=== PATIENT | female | born 1960 | race Caucasian/White ===

== ENCOUNTER 2017-07-27 17:39 | Inpatient (IN) | payer BC ==
[~2017-07-27] VITALS: Ht 160 cm; Wt 65.5 kg
[~2017-07-27 17:39] MED LIST: CYAN3INJ; EFF50 PO; FRRS300 PO; SYN125 PO; TRAZ100T29 PO
[2017-07-27] MEDS ORDERED: LORAZEPAM 2 MG/ML 1 ML VIAL IV STA (18:02)
[2017-07-27] MEDS ORDERED: CLONIDINE HCL 0.3 MG/24 HR TRANSDERM SYS TD STA (18:02)
[2017-07-27] MEDS ORDERED: VENL150C56 PO (18:05)
[2017-07-27] MEDS ORDERED: LEVO125T72 PO (18:05)
[2017-07-27] MEDS ORDERED: MULTI-VITAMIN INFUSION INJ 10 ML, THIAMINE HCL INJ 100 MG, FoLIC ACID INJ 1 MG in SODIU... IV ONE (18:15)
--- NOTE | 2017-07-27 18:21 | EMERGENCY ROOM VISIT NOTE ---
History Report prepared by Alberto: Naseem Llamas Under the Supervision of: Dr. Dung Kern M.D. First contact with patient: 17:48 Chief Complaint: DETOX REQUEST Stated Complaint: NEED DETOX, VOLUNTARY COMMITTMENT History of Present Illness The patient is a 57 year old female who presents to the Emergency Room with persistent anxiety beginning a couple of days ago. The patient states that she has had problems with drinking alcohol and using drugs. She reports that she usually drinks a fifth a day. The patient states her last alcoholic beverage was this morning. The patient states she had used drugs such as Percocet, Ketamine, and Valium in the past. She reports that recently she has been huffing gas and air duster. The patient states she does not feel safe since her is not home. She reports she is anxious that she is going to hurt herself. She reports she tried to schedule detox but states she is not able to get in until early next week due to insurance. She reports that she decided to come to the ER today because she feels unsafe and would like to get help. Source of History: patient Onset: a couple of days ago Position: other (global) Quality: other (global) Timing: other (persistent) Review of Systems See HPI for pertinent positives & negatives. A total of 10 systems reviewed and were otherwise negative. Past Medical & Surgical Medical Problems: (1) Anemia (2) Anxiety (3) Depression (4) Graves disease (5) HLD (hyperlipidemia) (6) Hypothyroid (7) Meralgia paresthetica Surgical Problems: (1) H/O abdominoplasty (2) H/O section (3) H/O gastric bypass (4) H/O thyroidectomy (5) Hx of tonsillectomy Family History FH: COPD (chronic obstructive pulmonary disease) FH: asthma Heart disease Social History Smoking Status: Current Every Day Smoker Alcohol Use: heavy Marital Status: Housing Status: lives with significant other Current/Historical Medications Scheduled Levothyroxine Sodium (Synthroid), 125 MCG PO DAILY Trazodone Hcl (Trazodone), 150 MG PO QHS Venlafaxine Hcl (Effexor Extended Rel), 300 MG PO DAILY Allergies Coded Allergies: No Known Allergies (Verified , 07/27/17) Physical Exam Vital Signs Date Time Temp Pulse Resp B/P (MAP) Pulse Ox O2 Delivery O2 Flow Rate FiO2 5/12/18 21:46 83 21 117/67 96 Room Air 07/27/17 19:53 72 20 137/73 98 Room Air 07/27/17 18:55 71 07/27/17 18:43 96 Room Air 07/27/17 18:43 96 Room Air 07/27/17 17:42 36.7 72 20 134/75 100 Room Air Physical Exam GENERAL: Tearful, awake, alert, well-appearing, in no acute distress HENT: Normocephalic, atraumatic. Oropharynx unremarkable. EYES: Normal conjunctiva. Sclera non-icteric. NECK: Supple. No nuchal rigidity. FROM. No JVD. RESPIRATORY: Clear to auscultation. CARDIAC: Regular rate, normal rhythm. Extremities warm and well perfused. Pulses equal. ABDOMEN: Soft, non-distended. No tenderness to palpation. No rebound or guarding. No masses. RECTAL: Deferred. MUSCULOSKELETAL: Chest examination reveals no tenderness. The back is symmetrical on inspection without obvious abnormality. There is no CVA tenderness to palpation. No joint edema. LOWER EXTREMITIES: Calves are equal size bilaterally and non-tender. No edema. No discoloration. NEURO: Normal sensorium. No sensory or motor deficits noted. SKIN: No rash or jaundice noted. Medical Decision & Procedures Laboratory Results 07/27/17 18:25 Red Blood Count 4.64, Mean Corpuscular Volume 78.4, Mean Corpuscular Hemoglobin 25.2, Mean Corpuscular Hemoglobin Concent 32.1, Mean Platelet Volume 9.1, Neutrophils (%) (Auto) 82.1, Lymphocytes (%) (Auto) 9.1, Monocytes (%) (Auto) 8.4, Eosinophils (%) (Auto) 0.0, Basophils (%) (Auto) 0.2, Neutrophils # (Auto) 10.47, Lymphocytes # (Auto) 1.16, Monocytes # (Auto) 1.07, Eosinophils # (Auto) 0.00, Basophils # (Auto) 0.02 07/27/17 18:25 Test 07/27/17 18:25 07/27/17 18:56 White Blood Count 12.75 K/uL (4.8-10.8) Red Blood Count 4.64 M/uL (4.2-5.4) Hemoglobin 11.7 g/dL (12.0-16.0) Hematocrit 36.4 % (37-47) Mean Corpuscular Volume 78.4 fL (80-100) Mean Corpuscular Hemoglobin 25.2 pg (25-34) Mean Corpuscular Hemoglobin Concent 32.1 g/dl (32-36) Platelet Count 391 K/uL (130-400) Mean Platelet Volume 9.1 fL (7.4-10.4) Neutrophils (%) (Auto) 82.1 % Lymphocytes (%) (Auto) 9.1 % Monocytes (%) (Auto) 8.4 % Eosinophils (%) (Auto) 0.0 % Basophils (%) (Auto) 0.2 % Neutrophils # (Auto) 10.47 K/uL (1.4-6.5) Lymphocytes # (Auto) 1.16 K/uL (1.2-3.4) Monocytes # (Auto) 1.07 K/uL (0.11-0.59) Eosinophils # (Auto) 0.00 K/uL (0-0.5) Basophils # (Auto) 0.02 K/uL (0-0.2) RDW Standard Deviation 42.0 fL (36.4-46.3) RDW Coefficient of Variation 14.8 % (11.5-14.5) Immature Granulocyte % (Auto) 0.2 % Immature Granulocyte # (Auto) 0.03 K/uL (0.00-0.02) Prothrombin Time 9.6 SECONDS (9.0-12.0) Prothromb Time International Ratio 0.9 (0.9-1.1) Activated Partial Thromboplast Time 27.5 SECONDS (21.0-31.0) Partial Thromboplastin Ratio 1.1 Urine Color DK YELLOW Urine Appearance CLEAR (CLEAR) Urine pH 5.5 (4.5-7.5) Urine Specific [place] 1.037 (1.000-1.030) Urine Protein TRACE (NEG) Urine Glucose (UA) NEG (NEG) Urine Ketones 1+ (NEG) Urine Occult Blood NEG (NEG) Urine Nitrite NEG (NEG) Urine Bilirubin NEG (NEG) Urine Urobilinogen NEG (NEG) Urine Leukocyte Esterase NEG (NEG) Urine WBC (Auto) 1-5 /hpf (0-5) Urine RBC (Auto) 0-4 /hpf (0-4) Urine Hyaline Casts (Auto) 1-5 /lpf (0-5) Urine Epithelial Cells (Auto) >30 /lpf (0-5) Urine Bacteria (Auto) NEG (NEG) Anion Gap 6.0 mmol/L (3-11) Est Creatinine Clear Calc Drug Dose 57.9 ml/min Estimated GFR () 74.7 Estimated GFR (Non- 64.5 BUN/Creatinine Ratio 24.8 (10-20) Calcium Level 9.3 mg/dl (8.5-10.1) Total Bilirubin 0.4 mg/dl (0.2-1) Direct Bilirubin 0.1 mg/dl (0-0.2) Aspartate Amino Transf (AST/SGOT) 103 U/L (15-37) Alanine Aminotransferase (ALT/SGPT) 22 U/L (12-78) Alkaline Phosphatase 109 U/L (45-117) Total Creatine Kinase 2827 U/L (26-192) Creatine Kinase MB 54.7 ng/ml (0.5-3.6) Creatine Kinase MB Ratio 1.9 (0-3.0) Troponin I < 0.015 ng/ml (0-0.045) Total Protein 7.9 gm/dl (6.4-8.2) Albumin 4.1 gm/dl (3.4-5.0) Lipase 105 U/L (73-393) Salicylates Level 3.2 mg/dl (2.8-20) Urine Opiates Screen NEG (NEG) Urine Methadone, Qualitative NEG (NEG) Acetaminophen Level < 2 ug/ml (10-30) Urine Barbiturates NEG (NEG) Urine Phencyclidine (PCP) Level NEG (NEG) Ur Amphetamine/Methamphetamine NEG (NEG) MDMA (Ecstasy) Screen POS (NEG) Urine Benzodiazepines Screen NEG (NEG) Urine Cocaine Metabolite NEG (NEG) Urine Marijuana (THC) NEG (NEG) Ethyl Alcohol mg/dL < 3.0 mg/dl (0-3) Labs reviewed by ED physician. Medications Administered Medications (Trade) Dose Ordered Sig/Sneha Route Start Time Stop Time Status Last Admin Dose Admin Multivitamins 10 ml/Thiamine HCl 100 mg/Folic Acid 1 mg/Sodium Chloride 1,011.2 ml @ 500 mls/ hr Q2H2M ONCE IV 07/27/17 18:15 07/27/17 20:16 DC 07/27/17 19:30 500 MLS/HR Clonidine HCl (Wjthfczh-Zaf-0 0.3mg/24hr Patch) 1 patch NOW STAT TD 07/27/17 18:02 07/27/17 18:05 DC 07/27/17 19:40 1 PATCH Lorazepam (Ativan Inj) 1 mg NOW STAT IV 07/27/17 18:02 07/27/17 18:05 DC 07/27/17 19:39 1 MG Ondansetron HCl (Zofran Inj) 4 mg NOW STAT IV 07/27/17 19:09 07/27/17 19:10 DC 07/27/17 19:40 4 MG Sodium Chloride 1,000 ml @ 999 mls/hr Q1H1M STAT IV 07/27/17 19:31 07/27/17 20:31 DC 07/27/17 21:45 999 MLS/HR Potassium Chloride (Klor-Con M10) 40 meq STK-MED ONCE .ROUTE 07/27/17 19:35 07/27/17 19:36 DC 07/27/17 19:40 40 MEQ ECG Per My Interpretation Indication: toxicologic Rate (beats per minute): 69 Rhythm: normal sinus Findings: no ectopy, other (No ST elevation or depression) ED Course 1800: Past medical records reviewed. The patient was evaluated in room A07. A complete history and physical examination was performed. 1801: Ordered Ativan Injection 1 mg IV, Clonidine HCl 1 patch TD. 1814: Ordered Multivitamins 10 ml/ Thiamine HCl 100 mg/ Folic Acid 1 mg/ Sodium Chloride 1011.2 ml @ 500 mls/hr IV. 1908: Ordered Zofran Injection 4 mg IV. 1930: Ordered Sodium Chloride 1000 ml @ 999 mls/hr IV. 1934: Ordered Potassium Chloride 40 meq PO. 1943: I reevaluated the patient and updated her on her results. I discussed the treatment plan, which she agrees to. The patient will be further evaluated. 1945: I discussed the patient's case with Dr. Choi, [facility] Hospitalist. He understands the patient's condition and agrees to accept the patient. The patient will be further evaluated. Medical Decision Prior records/ancillary studies reviewed. Triage Nursing notes reviewed. The patient's history was concerning for possible psychiatric disturbance. Differential diagnosis: Etiologies such as mood disorder, infection, hypoglycemia, electrolyte abnormalities, cardiac sources, intracerebral event, toxicologic, neurologic, as well as others were entertained. This is a 57-year-old female who presents the emergency department with a plan to go to detox on Saturday however in the meantime the patient is afraid that she is going to hurt herself. For this reason the patient was treated for withdrawal and placed on a clonidine patch as well as Ativan. She was also given a banana bag. She was found to have an elevation in her CK therefore I did discuss the case with the hospitalist service. She was given a normal saline bolus. Patient was in agreement with the treatment plan. Medication Reconcilliation Current Medication List: was personally reviewed by me Blood Pressure Screening Patient's blood pressure: Elevated blood pressure Referred to Hospitalist Consults Time Called: 1945 Consulting Physician: Kourtney Bearden Hospitalist Returned Call: 1945 I discussed the patient's case with Kourtney Bearden Hospitalist. He understands the patient's condition and agrees to accept the patient. The patient will be further evaluated. Impression Primary Impression: Rhabdomyolysis Additional Impression: Alcohol withdrawal Scribe Attestation The scribe's documentation has been prepared under my direction and personally reviewed by me in its entirety. I confirm that the note above accurately reflects all work, treatment, procedures, and medical decision making performed by me. Departure Information Dispostion Being Evaluated By Hospitalist Referrals No Doctor, Assigned (PCP) Patient Instructions My [facility] Problem Qualifiers Primary Impression: Rhabdomyolysis Rhabdomyolysis type: non-traumatic Qualified Codes: M62.82 - Rhabdomyolysis Additional Impression: Alcohol withdrawal Complication of substance-induced condition: uncomplicated Qualified Codes: F10.230 - Alcohol dependence with withdrawal, uncomplicated
[2017-07-27 18:43] LABS: BASO % 0.2 %; BASO ABS # 0.02 K/uL (0-0.2); HEMATOCRIT 36.4 % (37-47); HEMOGLOBIN 11.7 g/dL (12.0-16.0); IG# 0.03 K/uL (0.00-0.02); LYMPH % 9.1 %; LYMPH ABS # 1.16 K/uL (1.2-3.4); MEAN CELL VOLUME 78.4 fL (80-100); MEAN CORPUSCULAR HEMOGLOBIN 25.2 pg (25-34); MEAN CORPUSCULAR HGB CONC 32.1 g/dl (32-36); MEAN PLATELET VOLUME 9.1 fL (7.4-10.4); MONO % 8.4 %; MONO ABS # 1.07 K/uL (0.11-0.59); NEUT % 82.1 %; NEUT ABS # 10.47 K/uL (1.4-6.5); PLATELET COUNT 391 K/uL (130-400); RED CELL DISTRIBUTION WIDTH CV 14.8 % (11.5-14.5); WHITE BLOOD COUNT 12.75 K/uL (4.8-10.8)
[2017-07-27 18:53] LABS: INR 0.9 (0.9-1.1); PTT PATIENT 27.5 SECONDS (21.0-31.0)
[2017-07-27 19:07] LABS: ALBUMIN 4.1 gm/dl (3.4-5.0); ALT/SGPT 22 U/L (12-78); AST/SGOT 103 U/L (15-37); BLOOD UREA NITROGEN 24 mg/dl (7-18); CALCIUM 9.3 mg/dl (8.5-10.1); CARBON DIOXIDE 28 mmol/L (21-32); CREATININE 0.98 mg/dl (0.60-1.20); GLUCOSE 125 mg/dl (70-99); POTASSIUM 3.3 mmol/L (3.5-5.1); SODIUM 137 mmol/L (136-145)
[2017-07-27] MEDS ORDERED: ONDANSETRON INJ 2 MG/ML 2 ML VIAL IV STA (19:09)
[2017-07-27] MEDS ORDERED: POTASSIUM CHLORIDE 20 MEQ TABCR PO STA (19:09)
[2017-07-27 19:22] LABS: ALKALINE PHOSPHATASE 109 U/L (45-117); CKMB 54.7 ng/ml (0.5-3.6); LIPASE 105 U/L (73-393); TOTAL PROTEIN 7.9 gm/dl (6.4-8.2)
[2017-07-27] MEDS: SODIUM CHLORIDE 0.9% 1000ML 1,000 ML IV STA ×2 (19:31→21:45)
[2017-07-27] MEDS ORDERED: POTASSIUM CHLORIDE 10 MEQ TABCR ONE (19:35)
[2017-07-27] MEDS ORDERED: GABAPENTIN 600 MG TAB PO SCH (22:30)
[2017-07-27] MEDS ORDERED: LORAZEPAM 2 MG/ML 1 ML VIAL IV PRN (22:30)
[2017-07-27] MEDS ORDERED: CYAN10004 IV (22:36)
[2017-07-27] MEDS ORDERED: LEVO112T4 PO (22:36)
[2017-07-27] MEDS ORDERED: NALT50TA5 PO (22:36)
[2017-07-27 23:25] VITALS: BP 123/72; PULSE 75; TEMP 36.9; O2SAT 98; Ht 160 cm; Wt 65.5 kg
[2017-07-28] VITALS (8 sets, daily range): BP systolic 110–123; BP diastolic 60–76; PULSE 57–81; TEMP 36.7–37.1; O2SAT 94–99
[2017-07-28] MEDS ORDERED: GABAPENTIN 1200MG LOADING DOSE PO ONE
[2017-07-28] MEDS ORDERED: SODIUM CHLORIDE 0.9% 1000ML 1,000 ML IV SCH
[2017-07-28] MEDS: LORAZEPAM INJ 1 MG in SYRINGE 0.5 ML IV PRN ×3 (00:14→15:56)
--- NOTE | 2017-07-28 02:42 | History and Physical ---
History & Physical Date & Time of Service: July 28, 2017 at 02:11 Chief Complaint: Alcohol Abuse, Rhabdomyolysis Primary Care Physician: Ren Mcbride M.D.(ANNE-MARIE) History of Present Illness Source: patient, clinic records, hospital records 57 years old female with past medical history of vitamin B12, substance abuse, alcohol abuse, hypothyroidism, depression, anxiety history of gastric bypass came to the ER to get help for detox. Patient said that she has been in rehab several time and relapsed. She said that she wants to get help to get her detox. Patient said her anxiety is getting worse and she is very anxious that she is going to hurt herself. She decides to come to the ER because does not feel safe at home since her is not there and needed to get help. She said that she does not want to . Patient said that she drinks a fifth of liquor daily. Patient said that she has been buying drugs from the street. Denies any cocaine, heroin and marijuana used. Patient said that she has been huffing gas and hair duster that makes her to get high. She denies any suicidal thought, hallucination, or psychosis. Patient said that in the past she went to alcohol withdrawal and DT. She said that her last drink was this morning. she is waiting for placement for inpatient alcohol rehab. Denies any chest pain, palpitation, dizziness, shortness of breath, fever, dysuria. Past Medical/Surgical History Medical Problems: (1) Anemia (2) Anxiety (3) Depression (4) Graves disease (5) HLD (hyperlipidemia) (6) Hypothyroid (7) Meralgia paresthetica Surgical Problems: (1) H/O abdominoplasty (2) H/O section (3) H/O gastric bypass (4) H/O thyroidectomy (5) Hx of tonsillectomy Family History FH: COPD (chronic obstructive pulmonary disease) FH: asthma Heart disease Social History Smoking Status: Current Every Day Smoker Marital Status: Immunizations History of Influenza Vaccine: No History of Tetanus Vaccine?: Unknown History of Pneumococcal: No History of Hepatitis B Vaccine: DATES UNKNOWN Hepatitis Immunization Date: May 17, 1995 Allergies Coded Allergies: Tramadol (Verified Adverse Reaction, Severe, Seizure, 07/28/17) Patient states that she has seizures when she has Tramadol Home Medications Scheduled Cyanocobalamin (Vitamin B-12 1000 Mcg), 1,000 MCG IV MONTHLY Levothyroxine Sodium (Levothyroxine Sodium), 1 TAB PO DAILY Naltrexone Hcl (Naltrexone Hcl), 1 TAB PO DAILY Trazodone Hcl (Trazodone), 150 MG PO QHS Venlafaxine Hcl (Effexor Extended Rel), 300 MG PO DAILY Review of Systems Constitutional: + problem reported (Anxious), No fever, No chills Eyes: No eye pain, No diplopia ENT: No nasal symptoms, No trouble swallowing Respiratory: No cough, No sputum, No shortness of breath, No dyspnea on exertion Cardiovascular: No chest pain, No claudication, No palpitations Abdomen: No pain, No nausea, No vomiting Genitourinary - Female: No dysuria, No urinary frequency Neurologic: No memory loss, No weakness, No vertigo Psychiatric: + depression symptoms, + anxiety, + substance abuse Endocrine: No fatigue Hematologic / Lymphatic: No abnormal bleeding/bruising Integumentary: No rash, No itch Physical Exam Vital Signs Date Time Temp Pulse Resp B/P (MAP) Pulse Ox O2 Delivery O2 Flow Rate FiO2 07/27/17 23:25 36.9 75 24 123/72 98 Room Air 07/27/17 22:56 79 18 107/59 98 Room Air 07/27/17 21:46 83 21 117/67 96 Room Air 07/27/17 19:53 72 20 137/73 98 Room Air 07/27/17 18:55 71 07/27/17 18:43 96 Room Air 07/27/17 18:43 96 Room Air 07/27/17 17:42 36.7 72 20 134/75 100 Room Air General Appearance: WD/WN, no apparent distress Head: normocephalic, atraumatic Eyes: PERRL, EOMI ENT: hearing grossly normal Neck: no JVD, trachea midline Respiratory/Chest: normal breath sounds, no respiratory distress, no accessory muscle use Cardiovascular: regular rate, rhythm, no JVD, no murmur Abdomen/GI: normal bowel sounds, non tender, soft Back: no CVA tenderness Extremities/Musculoskelatal: no calf tenderness Neurologic/Psych: no motor/sensory deficits, alert, normal mood/affect, oriented x 3 Skin: warm/dry, no rash Diagnostics Laboratory Results Results Past 24 Hours Test 07/27/17 18:25 07/27/17 18:56 Range/Units White Blood Count 12.75 4.8-10.8 K/uL Red Blood Count 4.64 4.2-5.4 M/uL Hemoglobin 11.7 12.0-16.0 g/dL Hematocrit 36.4 37-47 % Mean Corpuscular Volume 78.4 80-100 fL Mean Corpuscular Hemoglobin 25.2 25-34 pg Mean Corpuscular Hemoglobin Concent 32.1 32-36 g/dl Platelet Count 391 130-400 K/uL Mean Platelet Volume 9.1 7.4-10.4 fL Neutrophils (%) (Auto) 82.1 % Lymphocytes (%) (Auto) 9.1 % Monocytes (%) (Auto) 8.4 % Eosinophils (%) (Auto) 0.0 % Basophils (%) (Auto) 0.2 % Neutrophils # (Auto) 10.47 1.4-6.5 K/uL Lymphocytes # (Auto) 1.16 1.2-3.4 K/uL Monocytes # (Auto) 1.07 0.11-0.59 K/uL Eosinophils # (Auto) 0.00 0-0.5 K/uL Basophils # (Auto) 0.02 0-0.2 K/uL RDW Standard Deviation 42.0 36.4-46.3 fL RDW Coefficient of Variation 14.8 11.5-14.5 % Immature Granulocyte % (Auto) 0.2 % Immature Granulocyte # (Auto) 0.03 0.00-0.02 K/uL Prothrombin Time 9.6 9.0-12.0 SECONDS Prothromb Time International Ratio 0.9 0.9-1.1 Activated Partial Thromboplast Time 27.5 21.0-31.0 SECONDS Partial Thromboplastin Ratio 1.1 Urine Color DK YELLOW Urine Appearance CLEAR CLEAR Urine pH 5.5 4.5-7.5 Urine Specific [place] 1.037 1.000-1.030 Urine Protein TRACE NEG Urine Glucose (UA) NEG NEG Urine Ketones 1+ NEG Urine Occult Blood NEG NEG Urine Nitrite NEG NEG Urine Bilirubin NEG NEG Urine Urobilinogen NEG NEG Urine Leukocyte Esterase NEG NEG Urine WBC (Auto) 1-5 0-5 /hpf Urine RBC (Auto) 0-4 0-4 /hpf Urine Hyaline Casts (Auto) 1-5 0-5 /lpf Urine Epithelial Cells (Auto) >30 0-5 /lpf Urine Bacteria (Auto) NEG NEG Sodium Level 137 136-145 mmol/L Potassium Level 3.3 3.5-5.1 mmol/L Chloride Level 103 98-107 mmol/L Carbon Dioxide Level 28 21-32 mmol/L Anion Gap 6.0 3-11 mmol/L Blood Urea Nitrogen 24 7-18 mg/dl Creatinine 0.98 0.60-1.20 mg/dl Est Creatinine Clear Calc Drug Dose 57.9 ml/min Estimated GFR () 74.7 Estimated GFR (Non- 64.5 BUN/Creatinine Ratio 24.8 10-20 Random Glucose 125 70-99 mg/dl Calcium Level 9.3 8.5-10.1 mg/dl Total Bilirubin 0.4 0.2-1 mg/dl Direct Bilirubin 0.1 0-0.2 mg/dl Aspartate Amino Transf (AST/SGOT) 103 15-37 U/L Alanine Aminotransferase (ALT/SGPT) 22 12-78 U/L Alkaline Phosphatase 109 45-117 U/L Total Creatine Kinase 2827 26-192 U/L Creatine Kinase MB 54.7 0.5-3.6 ng/ml Creatine Kinase MB Ratio 1.9 0-3.0 Troponin I < 0.015 0-0.045 ng/ml Total Protein 7.9 6.4-8.2 gm/dl Albumin 4.1 3.4-5.0 gm/dl Lipase 105 73-393 U/L Salicylates Level 3.2 2.8-20 mg/dl Urine Opiates Screen NEG NEG Urine Methadone, Qualitative NEG NEG Acetaminophen Level < 2 10-30 ug/ml Urine Barbiturates NEG NEG Urine Phencyclidine (PCP) Level NEG NEG Ur Amphetamine/Methamphetamine NEG NEG MDMA (Ecstasy) Screen POS NEG Urine Benzodiazepines Screen NEG NEG Urine Cocaine Metabolite NEG NEG Urine Marijuana (THC) NEG NEG Ethyl Alcohol mg/dL < 3.0 0-3 mg/dl Impression Assessment and Plan Alcohol abuse History of DT and alcohol withdrawal We will start on gabapentin and Ativan for alcohol withdrawal protocol One-to-one observation Continue thiamine and folic acid daily Continue IV fluid Counseling on alcohol cessation On naltrexone Will need inpatient alcohol rehab Substance abuse Purchase illegal substances from the street Depression Anxiety Denies any suicidal thoughts Continue Effexor Psych consult Mild rhabdo CK on admission above 2827 Continue IV fluid Check CK level in a.m. Hypokalemia K replaced Monitor BMP Hypothyroidism continue levothyroxine Check TSH in a.m. B12 deficiency Check B12 level Continue monthly B12 injection DVT prophylaxis On Lovenox subcu CODE STATUS full code Advanced Directives Existing Living Will: No Existing Power of Dry Cell Assembly Supervisor: No Resuscitation Status VTE Prophylaxis Will order VTE Prophylaxis: Yes
[2017-07-28] MEDS: LEVOTHYROXINE 112 MCG TAB PO SCH (05:50)
[2017-07-28] MEDS: GABAPENTIN 600MG Q6H DOSE PO SCH ×2 (05:50→11:38)
[2017-07-28 06:15] LABS: HEMATOCRIT 28.8 % (37-47); HEMOGLOBIN 8.9 g/dL (12.0-16.0); MEAN CELL VOLUME 79.8 fL (80-100); MEAN CORPUSCULAR HEMOGLOBIN 24.7 pg (25-34); MEAN CORPUSCULAR HGB CONC 30.9 g/dl (32-36); MEAN PLATELET VOLUME 8.5 fL (7.4-10.4); PLATELET COUNT 266 K/uL (130-400); RED CELL DISTRIBUTION WIDTH CV 15.1 % (11.5-14.5); RED CELL DISTRIBUTION WIDTH SD 43.5 fL (36.4-46.3); WHITE BLOOD COUNT 7.23 K/uL (4.8-10.8)
[2017-07-28 06:57] LABS: CALCIUM 7.8 mg/dl (8.5-10.1); CREATININE 0.57 mg/dl (0.60-1.20); POTASSIUM 3.9 mmol/L (3.5-5.1)
[2017-07-28] MEDS: THIAMINE HCL 100 MG TAB PO SCH (08:20)
[2017-07-28] MEDS: VENLAFAXINE HCL XR 150 MG CAPXR PO SCH (08:20)
[2017-07-28] MEDS: ENOXAPARIN 40 MG/0.4 ML SYR SQ SCH (08:20)
--- NOTE | 2017-07-28 11:39 | Psychiatric Consultation ---
Psychiatric Consultation Date of Service: July 28, 2017. Consult placed to evaluate depression in a 57 yo woman who is admitted medically for alcohol withdrawal. Liaison attempted to see X 2 without success due to DT's and somnolence. We will attempt to see the patient again tomorrow when she is more alert.
--- NOTE | 2017-07-28 20:10 | Progress Note ---
Medicine Progress Note Date & Time of Visit: July 28, 2017 at 19:00 . Subjective Recheck for alcohol withdrawal. Last drink about 24 hours ago. Experiencing tremors, anxiety, nausea. No emesis. No hallucinations. Seen by Psychiatry for depression. . Objective Last 8 Hrs Date Time Temp Pulse Resp B/P (MAP) Pulse Ox O2 Delivery O2 Flow Rate FiO2 07/28/17 17:35 36.9 81 16 111/60 (77) 98 Room Air 07/28/17 16:00 94 Room Air 07/28/17 15:16 37.0 64 18 123/76 (92) 94 Room Air Physical Exam: General- lying in bed; no distress Lungs- clear to auscultation; no respiratory distress Cardiovascular- RRR; no murmur or gallop appreciated; no JVD; no pretibial edema Abdomen- + bowel sounds, soft, nontender Extremities- no cyanosis; no calf tenderness Neuro- alert, oriented; resting tremor; no hallucinations Skin- warm & dry . Laboratory Results: Last 24 Hours Test 07/28/17 05:54 White Blood Count 7.23 K/uL Red Blood Count 3.61 M/uL Hemoglobin 8.9 g/dL Hematocrit 28.8 % Mean Corpuscular Volume 79.8 fL Mean Corpuscular Hemoglobin 24.7 pg Mean Corpuscular Hemoglobin Concent 30.9 g/dl RDW Standard Deviation 43.5 fL RDW Coefficient of Variation 15.1 % Platelet Count 266 K/uL Mean Platelet Volume 8.5 fL Sodium Level 144 mmol/L Potassium Level 3.9 mmol/L Chloride Level 113 mmol/L Carbon Dioxide Level 27 mmol/L Anion Gap 5.0 mmol/L Blood Urea Nitrogen 15 mg/dl Creatinine 0.57 mg/dl Est Creatinine Clear Calc Drug Dose 100.3 ml/min Estimated GFR () 120.1 Estimated GFR (Non- 103.6 BUN/Creatinine Ratio 27.2 Random Glucose 95 mg/dl Calcium Level 7.8 mg/dl Total Creatine Kinase 1478 U/L Vitamin B12 Level 202 pg/mL Folate 14.53 ng/mL Thyroid Stimulating Hormone (TSH) 0.293 uIu/ml Assessment & Plan ALCOHOL WITHDRAWAL Continue alcohol withdrawal protocol with gabapentin, lorazepam, thiamine, MVI. ALCOHOLISM Patient anticipates admission to D&A facility. RHABDOMYOLYSIS CPK at time of admission 2827. Continue IV fluids. Follow. VTE PROPHYLAXIS SQ enoxaparin. Ambulate. DISPOSITION Anticipated admission to D&A facility. Family Medicine follow-up with Dr. Mcbride. . Current Inpatient Medications: Current Inpatient Medications Medications (Trade) Dose Ordered Sig/Sneha Route Start Time Stop Time Status Last Admin Dose Admin Thiamine HCl (Vitamin B-1 Tab) 100 mg QAM PO 07/28/17 09:00 08/27/17 08:59 07/28/17 08:20 100 MG Folic Acid (Folvite Tab) 1 mg QAM PO 07/28/17 09:00 08/27/17 08:59 07/28/17 08:19 1 MG Lorazepam (Ativan Inj) 1 mg ONE PRN IV 07/27/17 22:30 Gabapentin (Neurontin Tab) 600 mg Q8H PO 07/28/17 22:00 07/29/17 14:01 Gabapentin (Neurontin Tab) 600 mg Q12H PO 07/30/17 06:00 07/30/17 18:01 Gabapentin (Neurontin Tab) 600 mg Q24H PO 07/31/17 18:00 07/31/17 18:01 Lorazepam 1 mg/ Syringe 1 ml @ 1 mls/min UD PRN IV 07/28/17 00:15 08/27/17 00:14 07/28/17 15:56 1 MLS/MIN Enoxaparin Sodium (Lovenox Inj) 40 mg QAM SQ 07/28/17 09:00 08/27/17 08:59 07/28/17 08:20 40 MG Levothyroxine Sodium (Synthroid Tab) 112 mcg DAILYBB PO 07/28/17 06:30 08/27/17 06:29 07/28/17 05:50 112 MCG Trazodone HCl (Desyrel Tab) 150 mg HS PO 07/28/17 21:00 08/27/17 20:59 Venlafaxine HCl (effeXOR EXTENDED REL CAP) 300 mg DAILY PO 07/28/17 09:00 08/27/17 08:59 07/28/17 08:20 300 MG Miscellaneous Information (Order Awaiting Action) 1 ea QS N/A 07/28/17 08:00 08/27/17 07:59
[2017-07-28] MEDS ORDERED: PANTOprazole INJ 40 MG in SYRINGE 0 ML IV ONE (20:30)
[2017-07-28] MEDS: TRAZODONE HCL 50 MG TAB PO SCH (21:31)
[2017-07-28] MEDS: GABAPENTIN 600MG Q8H DOSE PO SCH (21:32)
[2017-07-28] MEDS ORDERED: KETOROLAC TROMETHAMINE 15 MG/ML VIAL IV. ONE (22:00)
[2017-07-29] VITALS (7 sets, daily range): BP systolic 109–127; BP diastolic 63–77; PULSE 59–67; TEMP 36.5–37; O2SAT 94–97
[2017-07-29] MEDS: LEVOTHYROXINE 112 MCG TAB PO SCH (06:11)
[2017-07-29] MEDS: GABAPENTIN 600MG Q8H DOSE PO SCH ×2 (06:11→13:37)
[2017-07-29 06:35] LABS: HEMATOCRIT 29.9 % (37-47); HEMOGLOBIN 9.3 g/dL (12.0-16.0); MEAN CELL VOLUME 80.4 fL (80-100); MEAN CORPUSCULAR HGB CONC 31.1 g/dl (32-36); MEAN PLATELET VOLUME 8.6 fL (7.4-10.4); PLATELET COUNT 250 K/uL (130-400); RED CELL DISTRIBUTION WIDTH CV 15.2 % (11.5-14.5); RED CELL DISTRIBUTION WIDTH SD 44.6 fL (36.4-46.3); WHITE BLOOD COUNT 5.43 K/uL (4.8-10.8)
[2017-07-29 07:03] LABS: ALBUMIN 2.7 gm/dl (3.4-5.0); CALCIUM 8.1 mg/dl (8.5-10.1); CREATININE 0.62 mg/dl (0.60-1.20); POTASSIUM 3.7 mmol/L (3.5-5.1)
[2017-07-29 07:04] LABS: PHOSPHORUS 2.3 mg/dl (2.5-4.9); TOTAL PROTEIN 5.4 gm/dl (6.4-8.2)
[2017-07-29] MEDS: THIAMINE HCL 100 MG TAB PO SCH (08:28)
[2017-07-29] MEDS: VENLAFAXINE HCL XR 150 MG CAPXR PO SCH (08:29)
[2017-07-29] MEDS: PANTOprazole SOD 40 MG TAB PO SCH (08:29)
[2017-07-29] MEDS: ENOXAPARIN 40 MG/0.4 ML SYR SQ SCH (08:31)
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
[2017-07-29] MEDS ORDERED: LORAZEPAM 1 MG TAB PO PRN ×2 (12:30)
[2017-07-29] MEDS: IBUPROFEN 200 MG TAB PO PRN ×2 (13:39→20:21)
[2017-07-29] MEDS ORDERED: hydrOXYzine HCL 25 MG TAB PO PRN (14:00)
[2017-07-29] MEDS ORDERED: NICOTINE 14 MG/24 HR TDSY TD ONE (19:15)
--- NOTE | 2017-07-29 21:18 | Progress Note ---
Medicine Progress Note Date & Time of Visit: July 29, 2017 at 12:20 . Subjective Recheck for alcohol withdrawal. Last drink about 48 hours ago. Tremors improved. Nausea better, but appetite only fair. No emesis. No hallucinations. Anxious. . Objective Last 8 Hrs Date Time Temp Pulse Resp B/P (MAP) Pulse Ox O2 Delivery O2 Flow Rate FiO2 07/29/17 16:00 94 Room Air 07/29/17 15:32 36.5 67 16 116/75 (89) 97 Room Air Physical Exam: General- lying in bed; no distress Lungs- clear to auscultation; no respiratory distress Cardiovascular- RRR; no murmur or gallop appreciated; no JVD; no pretibial edema Abdomen- + bowel sounds, soft, nontender Extremities- no cyanosis; no calf tenderness Neuro- alert, oriented; mild resting tremor; no hallucinations Skin- warm & dry . Laboratory Results: Last 24 Hours Test 07/29/17 06:25 White Blood Count 5.43 K/uL Red Blood Count 3.72 M/uL Hemoglobin 9.3 g/dL Hematocrit 29.9 % Mean Corpuscular Volume 80.4 fL Mean Corpuscular Hemoglobin 25.0 pg Mean Corpuscular Hemoglobin Concent 31.1 g/dl RDW Standard Deviation 44.6 fL RDW Coefficient of Variation 15.2 % Platelet Count 250 K/uL Mean Platelet Volume 8.6 fL Sodium Level 143 mmol/L Potassium Level 3.7 mmol/L Chloride Level 110 mmol/L Carbon Dioxide Level 30 mmol/L Anion Gap 4.0 mmol/L Blood Urea Nitrogen 8 mg/dl Creatinine 0.62 mg/dl Est Creatinine Clear Calc Drug Dose 92.2 ml/min Estimated GFR () 116.8 Estimated GFR (Non- 100.8 BUN/Creatinine Ratio 12.8 Random Glucose 97 mg/dl Calcium Level 8.1 mg/dl Phosphorus Level 2.3 mg/dl Magnesium Level 1.8 mg/dl Total Bilirubin 0.3 mg/dl Direct Bilirubin 0.1 mg/dl Aspartate Amino Transf (AST/SGOT) 57 U/L Alanine Aminotransferase (ALT/SGPT) 17 U/L Alkaline Phosphatase 73 U/L Total Creatine Kinase 766 U/L Total Protein 5.4 gm/dl Albumin 2.7 gm/dl Assessment & Plan ALCOHOL WITHDRAWAL Last drink 2 days ago. Moderate withdrawal symptoms. Continue alcohol withdrawal protocol with gabapentin, lorazepam, thiamine, MVI. ALCOHOLISM Patient anticipates admission to D&A facility once withdrawal protocol completed. RHABDOMYOLYSIS CPK at time of admission 2827. Received IV fluids. CPK this morning 766. Follow. ANEMIA Hgb 11.7 --> 9.3. Anemia may be multifactorial. S/P gastric bypass, on B12 injections. B12 202. Folate 14.53. Check Fe studies. B12 IM injection during hospital stay. HYPOTHYROIDISM TSH = 0.293. Decrease levothyroxine to 100 mcg daily. Follow and adjust dose. DEPRESSION Psychiatry consulted. TOBACCO USE Nicotine patch ordered. VTE PROPHYLAXIS SQ enoxaparin. Ambulate. DISPOSITION Anticipated admission to D&A facility once alcohol withdrawal protocol completed (07/31). Family Medicine follow-up with Dr. Mcbride. . Current Inpatient Medications: Current Inpatient Medications Medications (Trade) Dose Ordered Sig/Sneha Route Start Time Stop Time Status Last Admin Dose Admin Thiamine HCl (Vitamin B-1 Tab) 100 mg QAM PO 07/28/17 09:00 08/27/17 08:59 07/29/17 08:28 100 MG Folic Acid (Folvite Tab) 1 mg QAM PO 07/28/17 09:00 08/27/17 08:59 07/29/17 08:29 1 MG Lorazepam (Ativan Inj) 1 mg ONE PRN IV 07/27/17 22:30 Gabapentin (Neurontin Tab) 600 mg Q12H PO 07/30/17 06:00 07/30/17 18:01 Gabapentin (Neurontin Tab) 600 mg Q24H PO 07/31/17 18:00 07/31/17 18:01 Lorazepam 1 mg/ Syringe 1 ml @ 1 mls/min UD PRN IV 07/28/17 00:15 08/27/17 00:14 07/28/17 15:56 1 MLS/MIN Enoxaparin Sodium (Lovenox Inj) 40 mg QAM SQ 07/28/17 09:00 08/27/17 08:59 07/29/17 08:31 40 MG Levothyroxine Sodium (Synthroid Tab) 112 mcg DAILYBB PO 07/28/17 06:30 08/27/17 06:29 07/29/17 06:11 112 MCG Trazodone HCl (Desyrel Tab) 150 mg HS PO 07/28/17 21:00 08/27/17 20:59 07/28/17 21:31 150 MG Venlafaxine HCl (effeXOR EXTENDED REL CAP) 300 mg DAILY PO 07/28/17 09:00 08/27/17 08:59 07/29/17 08:29 300 MG Miscellaneous Information (Order Awaiting Action) 1 ea QS N/A 07/28/17 08:00 08/27/17 07:59 Pantoprazole Sodium (Protonix Tab) 40 mg QAM PO 07/29/17 09:00 08/28/17 08:59 07/29/17 08:29 40 MG Lorazepam (Ativan Tab) PRN Dosing -Active Protocol UD PRN PO 07/29/17 12:30 08/28/17 12:29 Ibuprofen (Advil Tab) 400 mg Q6H PRN PO 07/29/17 12:30 08/28/17 12:29 07/29/17 20:21 400 MG Hydroxyzine HCl (Vistaril Tab) 25 mg Q4H PRN PO 07/29/17 14:00 08/28/17 13:59 Nicotine (Nicoderm Cq 14MG Patch) 1 patch QAM TD 07/30/17 09:00 08/29/17 08:59 Miscellaneous (Remove Nicoderm Patch) 1 ea HS N/A 07/29/17 21:00 08/28/17 20:59
[2017-07-29] MEDS: TRAZODONE HCL 50 MG TAB PO SCH (21:58)
[2017-07-30] MEDS ORDERED: GABAPENTIN 600MG Q12H DOSE PO SCH (06:00)
[2017-07-30] MEDS: IBUPROFEN 200 MG TAB PO PRN (06:11)
[2017-07-30] MEDS ORDERED: LEVOTHYROXINE 100 MCG TAB PO SCH (06:30)
[2017-07-30 06:52] VITALS: BP 120/83; PULSE 56; TEMP 36.7; O2SAT 97
[2017-07-30 07:34] LABS: HEMATOCRIT 31.3 % (37-47); HEMOGLOBIN 9.6 g/dL (12.0-16.0); MEAN CELL VOLUME 80.9 fL (80-100); MEAN CORPUSCULAR HEMOGLOBIN 24.8 pg (25-34); MEAN CORPUSCULAR HGB CONC 30.7 g/dl (32-36); MEAN PLATELET VOLUME 9.2 fL (7.4-10.4); PLATELET COUNT 290 K/uL (130-400); RED CELL DISTRIBUTION WIDTH CV 15.4 % (11.5-14.5); RED CELL DISTRIBUTION WIDTH SD 44.8 fL (36.4-46.3); WHITE BLOOD COUNT 4.43 K/uL (4.8-10.8)
[2017-07-30] MEDS: VENLAFAXINE HCL XR 150 MG CAPXR PO SCH (07:59)
[2017-07-30] MEDS: THIAMINE HCL 100 MG TAB PO SCH (08:00)
[2017-07-30] MEDS: PANTOprazole SOD 40 MG TAB PO SCH (08:00)
[2017-07-30 08:01] LABS: ALBUMIN 2.8 gm/dl (3.4-5.0); CREATININE 0.6 mg/dl (0.60-1.20); POTASSIUM 3.8 mmol/L (3.5-5.1)
[2017-07-30] MEDS: ENOXAPARIN 40 MG/0.4 ML SYR SQ SCH (08:02)
[2017-07-30 08:08] LABS: TOTAL PROTEIN 5.7 gm/dl (6.4-8.2)
[2017-07-30 08:52] VITALS: O2SAT 97
[2017-07-30] MEDS ORDERED: CYANOCOBALAMIN 1000 MCG/ML VIAL IM ONE (09:00)
[2017-07-30] MEDS ORDERED: NICOTINE 14 MG/24 HR TDSY TD SCH (09:00)
[2017-07-30] MEDS ORDERED: CYANOCOBALAMIN 1000 MCG/ML VIAL IM SCH (09:00)
--- NOTE | 2017-07-30 09:23 | Progress Note ---
Medicine Progress Note Date & Time of Visit: July 30, 2017 at 09:16. Subjective Recheck for alcohol withdrawal. Last drink 3 days ago. Tremors improved. Nausea and anorexia better. No emesis. No hallucinations. Less anxious. . Objective Last 8 Hrs Date Time Temp Pulse Resp B/P (MAP) Pulse Ox O2 Delivery O2 Flow Rate FiO2 07/30/17 08:52 97 Room Air 07/30/17 06:52 36.7 56 17 120/83 (95) 97 Room Air Physical Exam: General- lying in bed; no distress Lungs- clear to auscultation; no respiratory distress Cardiovascular- RRR; no murmur or gallop appreciated; no JVD; no pretibial edema Abdomen- + bowel sounds, soft, nontender Extremities- no cyanosis; no calf tenderness Neuro- alert, oriented; no tremor; no hallucinations Skin- warm & dry . Laboratory Results: Last 24 Hours Test 07/30/17 06:51 White Blood Count 4.43 K/uL Red Blood Count 3.87 M/uL Hemoglobin 9.6 g/dL Hematocrit 31.3 % Mean Corpuscular Volume 80.9 fL Mean Corpuscular Hemoglobin 24.8 pg Mean Corpuscular Hemoglobin Concent 30.7 g/dl RDW Standard Deviation 44.8 fL RDW Coefficient of Variation 15.4 % Platelet Count 290 K/uL Mean Platelet Volume 9.2 fL Sodium Level 143 mmol/L Potassium Level 3.8 mmol/L Chloride Level 109 mmol/L Carbon Dioxide Level 30 mmol/L Anion Gap 4.0 mmol/L Blood Urea Nitrogen 10 mg/dl Creatinine 0.60 mg/dl Est Creatinine Clear Calc Drug Dose 95.2 ml/min Estimated GFR () 118.1 Estimated GFR (Non- 101.9 BUN/Creatinine Ratio 15.7 Random Glucose 91 mg/dl Calcium Level 8.0 mg/dl Iron Level 17 mcg/dl Total Iron Binding Capacity 333 mcg/dl Transferrin 249 mg/dl Transferrin % Saturation 0 % Ferritin 9.7 ng/ml Total Bilirubin 0.2 mg/dl Aspartate Amino Transf (AST/SGOT) 44 U/L Alanine Aminotransferase (ALT/SGPT) 17 U/L Alkaline Phosphatase 70 U/L Total Creatine Kinase 459 U/L Total Protein 5.7 gm/dl Albumin 2.8 gm/dl Globulin 2.9 gm/dl Albumin/Globulin Ratio 1.0 Assessment & Plan ALCOHOL WITHDRAWAL Last drink 3 days ago. Moderate withdrawal symptoms. Doing well on alcohol withdrawal protocol with gabapentin, lorazepam, thiamine, MVI. Needs 2 more doses of gabapentin 600 mg- this evening and tomorrow morning. ALCOHOLISM Arrangements being made for transfer to D&A facility. RHABDOMYOLYSIS CPK at time of admission 2827. Received IV fluids. CPK this morning 459. Maintain hydration. ANEMIA Hgb 11.7 --> 9.3 --> 9.6. Anemia probably multifactorial. S/P gastric bypass, on B12 injections. B12 202. Folate 14.53. Fe 17, TIBC 333, ferritin 9.7. Received B12 1000 mcg IM 07/30. May benefit from parenteral Fe once she is discharged to home. HYPOTHYROIDISM TSH = 0.293. Decreased levothyroxine to 100 mcg daily. Follow and adjust dose. DEPRESSION Psychiatry consulted. Continue trazodone and venlafaxine. TOBACCO USE Nicotine patch. VTE PROPHYLAXIS Received SQ enoxaparin. Ambulating. DISPOSITION Arrangements being made for transfer to [facility] for rehab. Family Medicine follow-up with Dr. Mcbride. . Current Inpatient Medications: Current Inpatient Medications Medications (Trade) Dose Ordered Sig/Sneha Route Start Time Stop Time Status Last Admin Dose Admin Thiamine HCl (Vitamin B-1 Tab) 100 mg QAM PO 07/28/17 09:00 08/27/17 08:59 07/30/17 08:00 100 MG Folic Acid (Folvite Tab) 1 mg QAM PO 07/28/17 09:00 08/27/17 08:59 07/30/17 08:01 1 MG Lorazepam (Ativan Inj) 1 mg ONE PRN IV 07/27/17 22:30 Gabapentin (Neurontin Tab) 600 mg Q12H PO 07/30/17 06:00 07/30/17 18:01 07/30/17 05:41 600 MG Lorazepam 1 mg/ Syringe 1 ml @ 1 mls/min UD PRN IV 07/28/17 00:15 08/27/17 00:14 07/28/17 15:56 1 MLS/MIN Enoxaparin Sodium (Lovenox Inj) 40 mg QAM SQ 07/28/17 09:00 08/27/17 08:59 07/30/17 08:02 40 MG Trazodone HCl (Desyrel Tab) 150 mg HS PO 07/28/17 21:00 08/27/17 20:59 07/29/17 21:58 150 MG Venlafaxine HCl (effeXOR EXTENDED REL CAP) 300 mg DAILY PO 07/28/17 09:00 08/27/17 08:59 07/30/17 07:59 300 MG Miscellaneous Information (Order Awaiting Action) 1 ea QS N/A 07/28/17 08:00 08/27/17 07:59 Pantoprazole Sodium (Protonix Tab) 40 mg QAM PO 07/29/17 09:00 08/28/17 08:59 07/30/17 08:00 40 MG Lorazepam (Ativan Tab) PRN Dosing -Active Protocol UD PRN PO 07/29/17 12:30 08/28/17 12:29 Ibuprofen (Advil Tab) 400 mg Q6H PRN PO 07/29/17 12:30 08/28/17 12:29 07/30/17 06:11 400 MG Hydroxyzine HCl (Vistaril Tab) 25 mg Q4H PRN PO 07/29/17 14:00 08/28/17 13:59 Nicotine (Nicoderm Cq 14MG Patch) 1 patch QAM TD 07/30/17 09:00 08/29/17 08:59 07/30/17 08:01 1 PATCH Miscellaneous (Remove Nicoderm Patch) 1 ea HS N/A 07/29/17 21:00 08/28/17 20:59 07/29/17 21:00 1 EA Gabapentin (Neurontin Tab) 600 mg Q24H PO 07/31/17 09:00 07/31/17 09:01 Levothyroxine Sodium (Synthroid Tab) 100 mcg DAILYBB PO 07/30/17 06:30 08/29/17 06:29 07/30/17 06:10 100 MCG
[2017-07-30] MEDS ORDERED: LEVO100T7 PO (09:28)
[2017-07-30] MEDS ORDERED: NICO14DI5 TD (09:28)
[2017-07-30] MEDS ORDERED: NRN600 PO (09:28)
--- NOTE | 2017-07-30 09:31 | Discharge Instructions ---
Discharge Instructions Date of Service July 30, 2017. Admission Reason for Admission: alcohol withdrawal . Discharge Discharge Diagnosis / Problem: alcohol withdrawal Discharge Goals Goal(s): Improve function, Increase independence Activity Recommendations Activity Level: Up Ad Lalitha . Additional Information Patient informed of condition: Yes Advance Directives: No DNR: No Level of Care: Other Communicable Disease: No Prognosis: Improving Blanchard Catheter: No Instructions / Follow-Up Instructions / Follow-Up Thank you for receiving this patient in transfer. Please call if you have any questions. Ja Moody . Current Hospital Diet Patient's current hospital diet: Regular Diet Discharge Diet Recommended Diet: Regular Diet Pending Studies Studies pending at discharge: no Medical Emergencies . Who to Call and When: Medical Emergencies: If at any time you feel your situation is an emergency, please call 911 immediately. . Non-Emergent Contact Non-Emergency issues call your: Primary Care Provider, Hospital Doctor . . "Provider Documentation" section prepared by Ja Moody. . Core Measure Problem Core Measures: None
--- NOTE | 2017-07-30 09:36 | Discharge Summary ---
Discharge Summary Date of Service July 30, 2017. Discharge Summary Admission Date: July 27, 2017 at 22:24 Discharge Date: July 30, 2017 Principal Diagnosis: alcohol withdrawal OTHER ACUTE / SECONDARY DIAGNOSES: dehydration rhabdomyolysis . Secondary Diagnoses/Problems: Chronic and Resolved Medical Problems: Anemia Hypothyroidism Surgical Problems: H/O abdominoplasty H/O section H/O gastric bypass H/O thyroidectomy Hx of tonsillectomy . Consultations: Psychiatry . Medication Reconciliation New Medications: Levothyroxine Sodium (Levothyroxine Sodium) 100 Mcg Tab 100 MCG PO DAILY, #30 TAB 5 Refills New dose. Prescription sent to patient's pharmacy. Gabapentin (Gabapentin) 600 Mg Tab 600 MG PO BID, #2 TAB Last dose 07/31. Nicotine (Nicoderm Cq 14MG Patch) 14 Mg/24 Hr Dis 1 PATCH TD QAM for 30 Days Remove each evening. Continued Medications: Cyanocobalamin (Vitamin B-12 1000 Mcg) 1,000 Mcg Tab 1000 MCG IV MONTHLY, % Trazodone Hcl (Trazodone) 100 Mg Tab 150 MG PO QHS, 0 Refills Venlafaxine Hcl (Effexor Extended Rel) 150 Mg Cap 300 MG PO DAILY Discontinued Medications: Levothyroxine Sodium (Levothyroxine Sodium) 112 Mcg Tab 1 TAB PO DAILY, TAB 5 Refills Naltrexone Hcl (Naltrexone Hcl) 50 Mg Tab 1 TAB PO DAILY for 30 Days, #30 TAB 2 Refills Admission Information HPI (per Admitting provider): 57 years old female with past medical history of vitamin B12, substance abuse, alcohol abuse, hypothyroidism, depression, anxiety history of gastric bypass came to the ER to get help for detox. Patient said that she has been in rehab several time and relapsed. She said that she wants to get help to get her detox. Patient said her anxiety is getting worse and she is very anxious that she is going to hurt herself. She decides to come to the ER because does not feel safe at home since her is not there and needed to get help. She said that she does not want to . Patient said that she drinks a fifth of liquor daily. Patient said that she has been buying drugs from the street. Denies any cocaine, heroin and marijuana used. Patient said that she has been huffing gas and hair duster that makes her to get high. She denies any suicidal thought, hallucination, or psychosis. Patient said that in the past she went to alcohol withdrawal and DT. She said that her last drink was this morning. she is waiting for placement for inpatient alcohol rehab. Denies any chest pain, palpitation, dizziness, shortness of breath, fever, dysuria. . Physical Exam (per Admitting): General Appearance: WD/WN, no apparent distress Head: normocephalic, atraumatic Eyes: PERRL, EOMI ENT: hearing grossly normal Neck: no JVD, trachea midline Respiratory/Chest: normal breath sounds, no respiratory distress, no accessory muscle use Cardiovascular: regular rate, rhythm, no JVD, no murmur Abdomen/GI: normal bowel sounds, non tender, soft Back: no CVA tenderness Extremities/Musculoskelatal: no calf tenderness Neurologic/Psych: no motor/sensory deficits, alert, normal mood/affect, oriented x 3 Skin: warm/dry, no rash Hospital Course ALCOHOL WITHDRAWAL Last drink 3 days ago. Moderate withdrawal symptoms. Doing well on alcohol withdrawal protocol with gabapentin, lorazepam, thiamine, MVI. Needs 2 more doses of gabapentin 600 mg- this evening and tomorrow morning. ALCOHOLISM Arrangements being made for transfer to D&A facility. RHABDOMYOLYSIS CPK at time of admission 2827. Received IV fluids. CPK this morning 459. Maintain hydration. ANEMIA Hgb 11.7 --> 9.3 --> 9.6. Anemia probably multifactorial. S/P gastric bypass, on B12 injections. B12 202. Folate 14.53. Fe 17, TIBC 333, ferritin 9.7. Received B12 1000 mcg IM 07/30. May benefit from parenteral Fe once she is discharged to home. HYPOTHYROIDISM TSH = 0.293. Decreased levothyroxine to 100 mcg daily. Follow and adjust dose. DEPRESSION Psychiatry consulted. Continue trazodone and venlafaxine. TOBACCO USE Nicotine patch. VTE PROPHYLAXIS Received SQ enoxaparin. Ambulating. DISPOSITION Arrangements being made for transfer to [facility] for rehab. Family Medicine follow-up with Dr. Mcbride. . Total time spent on discharge = 35 min. This includes examination of the patient, discharge planning, medication reconciliation, and communication with other providers. . Discharge Instructions Date of Service July 30, 2017. Admission Reason for Admission: alcohol withdrawal . Discharge Discharge Diagnosis / Problem: alcohol withdrawal Discharge Goals Goal(s): Improve function, Increase independence Activity Recommendations Activity Level: Up Ad Lalitha . Additional Information Patient informed of condition: Yes Advance Directives: No DNR: No Level of Care: Other Communicable Disease: No Prognosis: Improving Blnachard Catheter: No Instructions / Follow-Up Instructions / Follow-Up Thank you for receiving this patient in transfer. Please call if you have any questions. Ja Moody . Current Hospital Diet Patient's current hospital diet: Regular Diet Discharge Diet Recommended Diet: Regular Diet Pending Studies Studies pending at discharge: no Medical Emergencies . Who to Call and When: Medical Emergencies: If at any time you feel your situation is an emergency, please call 911 immediately. . Non-Emergent Contact Non-Emergency issues call your: Primary Care Provider, Hospital Doctor . . "Provider Documentation" section prepared by Ja Moody. . Core Measure Problem Core Measures: None Additional Copies To Ren Mcbride M.D.(ANNE-MARIE)
[2017-07-30 09:55] VITALS: BP 120/83; PULSE 56; TEMP 36.7; O2SAT 97
[2017-07-31] MEDS ORDERED: GABAPENTIN 600 MG TAB PO SCH (09:00)
[2017-07-31] MEDS ORDERED: GABAPENTIN 600MG X1 DOSE PO SCH (18:00)
== END 2017-07-30 11:43 | DRG 897 ==
LOC: C.EDB 17:40 → C.MS2W 22:24 → ENRESERV 22:48
PROVIDERS: ADMIT Internal Medicine; ATTEND Internal Medicine
DX: F10.239 Alcohol dependence with withdrawal, unspecified (principal); M62.82 Rhabdomyolysis; F19.10 Other psychoactive substance abuse, uncomplicated; Z82.49 Family history of ischemic heart disease and other diseases of the circulatory system; F41.9 Anxiety disorder, unspecified; F17.200 Nicotine dependence, unspecified, uncomplicated; E03.9 Hypothyroidism, unspecified; F32.9 Major depressive disorder, single episode, unspecified; Z98.84 Bariatric surgery status; Z88.8 Allergy status to other drugs, medicaments and biological substances; E87.6 Hypokalemia; E53.8 Deficiency of other specified B group vitamins; E86.0 Dehydration

== ENCOUNTER 2018-11-01 15:29 | Inpatient (IN) ==
--- OUTSIDE RECORDS SUMMARY | 2018-11-01 15:32 | External Medical Summary | Continuity of Care Document ---
:1960 Author Name No Sampson Address Unavailable Unavailable , Care Team Providers Name Role Phone Chris Sampson Unavailable [email or web address] [email or web address], [email or web address] Unavailable Unavailable Problems Active medical history not documented Allergies and Adverse Reactions Allergy history not documented Medications Medications not documented Procedures Procedures not documented Immunizations Immunizations not documented Plan of Treatment Planned Observations Planned Goals not documented Results No Known Results Results not documented
[2018-11-01] MEDS ORDERED: MULTI-VITAMIN INFUSION 10 ML, THIAMINE HCL 100 MG, FOLIC ACID 1 MG in SODIUM CHLORIDE 0... IV SCH (16:00)
[2018-11-01 16:33] LABS: Basophils # (auto) 0.04 K/uL (0-0.2); Basophils % (auto) 0.4 %; Eosinophils # (auto) 0.05 K/uL (0-0.5); Eosinophils % (auto) 0.5 %; Hematocrit (blood only) 31.6 % (37-47); Hemoglobin 10.1 g/dL (12.0-16.0); Immature Granulocytes # (auto) 0.02 K/uL (0.00-0.02); Immature Granulocytes % (auto) 0.2 %; Lymphocytes % (auto) 21.6 %; Mean Corpuscular Volume 76.7 fL (80-100); Mean Platelet Volume 8.4 fL (7.4-10.4); Monocytes # (auto) 0.66 K/uL (0.11-0.59); Monocytes % (auto) 6.8 %; Neutrophils # (auto) 6.83 K/uL (1.4-6.5); Neutrophils % (auto) 70.5 %; Platelet Count 371 K/uL (130-400); RDW Coefficient of Variation 18.1 % (11.5-14.5); RDW Standard Deviation 50.7 fL (36.4-46.3); Red Blood Count 4.12 M/uL (4.2-5.4)
[2018-11-01 16:51] LABS: Albumin Level 3.4 gm/dl (3.4-5.0); BUN Creatinine Ratio 16.3 (10-20); Calcium 8.4 mg/dl (8.5-10.1); Creatinine Clr Calc Pharmacy 88.5 ml/min; Est GFR (African American) 118.6; Est GFR (Non-African American) 102.3; Potassium 3.3 mmol/L (3.5-5.1)
[2018-11-01 16:52] LABS: Acetaminophen < 2 ug/ml (10-30); Salicylate 3.5 mg/dl (2.8-20)
[2018-11-01 17:02] LABS: Albumin Globulin Ratio 1.2 (0.9-2); Bilirubin,Total 0.3 mg/dl (0.2-1); Globulin 2.9 gm/dl (2.5-4.0); Total Protein 6.3 gm/dl (6.4-8.2)
--- NOTE | 2018-11-01 17:15 | Emergency Department Note ---
Entered by [id number] acting as a scribe for Dung Angulo DO History of Present Illness General Chief complaint: Detox Request Stated complaint: DRINKING ALOT, SUICIDAL THOUGHTS Time Seen by Provider: 11/01/18 15:42 Home Medications Home Medications Medication Instructions Recorded Confirmed Type Trazodone Hcl (Trazodone) 150 mg PO QHS #0 07/04/10 History CYANOCOBALAMIN (VITAMIN B-12 1000 1,000 mcg IV MONTHLY #0 % 07/27/17 History MCG) VENLAFAXINE HCL (EFFEXOR EXTENDED 300 mg PO DAILY #0 07/27/17 History REL) Gabapentin 600 mg PO BID #2 tab 07/30/17 Rx LEVOTHYROXINE SODIUM 100 mcg PO DAILY #30 tab 07/30/17 Rx NICOTINE (NICODERM CQ 14MG PATCH) 1 patch TRANSDERMAL QAM 30 Days #0 07/30/17 Rx Allergies Allergy/AdvReac Type Severity Reaction Status Date / Time tramadol AdvReac Severe Seizure Verified 07/28/17 21:45 Past Med/Surg History Medical History Depression Anxiety HLD (hyperlipidemia) Graves disease Anemia Meralgia paresthetica Alcohol abuse Family History Other No significant family history Social History Preferred Language: Vincentian Feels Safe at Home: Yes Smoking Status: Current every day smoker Physical Exam Vital Signs Vital Signs - 24 hr 11/01/18 15:34 11/01/18 16:01 11/01/18 16:05 Temperature 36.9 C Temperature Source Oral Sepsis Recent Fever Within 48 Hours No Sepsis New/Unexplained Change in Mental Status No Sepsis Action Taken by Nursing No Action Required Pulse Rate 82 69 65 Pulse Rate from SpO2 Sensor 69 66 Pulse Rhythm Regular Pulse Strength Normal Respiratory Rate 20 17 15 Respiratory Effort / Characteristics Non-Labored Spontaneous Respiratory Depth Normal Respiratory Pattern Regular Blood Pressure 166/102 H 143/79 H Blood Pressure Mean 123 100 Blood Pressure Position Sitting Pulse Oximetry 98 97 95 Oxygen Delivery Method Room Air 11/01/18 16:30 Temperature Temperature Source Sepsis Recent Fever Within 48 Hours Sepsis New/Unexplained Change in Mental Status Sepsis Action Taken by Nursing Pulse Rate 65 Pulse Rate from SpO2 Sensor Pulse Rhythm Pulse Strength Respiratory Rate 18 Respiratory Effort / Characteristics Respiratory Depth Respiratory Pattern Blood Pressure Blood Pressure Mean Blood Pressure Position Pulse Oximetry Oxygen Delivery Method Medical Decision Making Laboratory Data Result diagrams: 11/01/18 16:16 11/01/18 16:16 Lab Results 11/01/18 11/01/18 11/01/18 Range/Units 16:16 16:16 16:16 WBC 9.70 (4.8-10.8) K/uL RBC 4.12 L (4.2-5.4) M/uL Hgb 10.1 L (12.0-16.0) g/dL Hct 31.6 L (37-47) % MCV 76.7 L (80-100) fL MCH 24.5 L (25-34) pg MCHC 32.0 (32-36) g/dL RDW Std Deviation 50.7 H (36.4-46.3) fL RDW Coeff of Sheldon 18.1 H (11.5-14.5) % Plt Count 371 (130-400) K/uL MPV 8.4 (7.4-10.4) fL Immature Gran % (Auto) 0.2 % Neut % (Auto) 70.5 % Lymph % (Auto) 21.6 % [place] % (Auto) 6.8 % Eos % (Auto) 0.5 % Baso % (Auto) 0.4 % Immature Gran # (Auto) 0.02 (0.00-0.02) K/uL Neut # (Auto) 6.83 H (1.4-6.5) K/uL Lymph # (Auto) 2.10 (1.2-3.4) K/uL [place] # (Auto) 0.66 H (0.11-0.59) K/uL Eos # (Auto) 0.05 (0-0.5) K/uL Baso # (Auto) 0.04 (0-0.2) K/uL Sodium 142 (136-145) mmol/L Potassium 3.3 L (3.5-5.1) mmol/L Chloride 108 H (98-107) mmol/L Carbon Dioxide 26 (21-32) mmol/L Anion Gap 8.0 (3-11) BUN 9 (7-18) mg/dl Creatinine 0.58 L (0.6-1.2) mg/dl Est Cr Clr Drug Dosing 88.5 ml/min Est GFR ( Amer) 118.6 Est GFR (Non-Af Amer) 102.3 BUN/Creatinine Ratio 16.3 (10-20) Glucose 89 (70-99) mg/dl Calcium 8.4 L (8.5-10.1) mg/dl Total Bilirubin 0.3 (0.2-1) mg/dl AST 20 (15-37) U/L ALT 10 L (12-78) U/L Alkaline Phosphatase 85 (45-117) U/L Total Protein 6.3 L (6.4-8.2) gm/dl Albumin 3.4 (3.4-5.0) gm/dl Globulin 2.9 (2.5-4.0) gm/dl Albumin/Globulin Ratio 1.2 (0.9-2) TSH 0.604 (0.300-4.500) uIu/ml Salicylates (2.8-20) mg/dl Acetaminophen (10-30) ug/ml Ethyl Alcohol mg/dL 203.8 H (0-3) mg/dl 11/01/18 Range/Units 16:16 WBC (4.8-10.8) K/uL RBC (4.2-5.4) M/uL Hgb (12.0-16.0) g/dL Hct (37-47) % MCV (80-100) fL MCH (25-34) pg MCHC (32-36) g/dL RDW Std Deviation (36.4-46.3) fL RDW Coeff of Sheldon (11.5-14.5) % Plt Count (130-400) K/uL MPV (7.4-10.4) fL Immature Gran % (Auto) % Neut % (Auto) % Lymph % (Auto) % [place] % (Auto) % Eos % (Auto) % Baso % (Auto) % Immature Gran # (Auto) (0.00-0.02) K/uL Neut # (Auto) (1.4-6.5) K/uL Lymph # (Auto) (1.2-3.4) K/uL [place] # (Auto) (0.11-0.59) K/uL Eos # (Auto) (0-0.5) K/uL Baso # (Auto) (0-0.2) K/uL Sodium (136-145) mmol/L Potassium (3.5-5.1) mmol/L Chloride (98-107) mmol/L Carbon Dioxide (21-32) mmol/L Anion Gap (3-11) BUN (7-18) mg/dl Creatinine (0.6-1.2) mg/dl Est Cr Clr Drug Dosing ml/min Est GFR ( Amer) Est GFR (Non-Af Amer) BUN/Creatinine Ratio (10-20) Glucose (70-99) mg/dl Calcium (8.5-10.1) mg/dl Total Bilirubin (0.2-1) mg/dl AST (15-37) U/L ALT (12-78) U/L Alkaline Phosphatase (45-117) U/L Total Protein (6.4-8.2) gm/dl Albumin (3.4-5.0) gm/dl Globulin (2.5-4.0) gm/dl Albumin/Globulin Ratio (0.9-2) TSH (0.300-4.500) uIu/ml Salicylates 3.5 (2.8-20) mg/dl Acetaminophen < 2 L (10-30) ug/ml Ethyl Alcohol mg/dL (0-3) mg/dl MDM Narrative This is a 58-year-old female who presents to the ED with a chief complaint of having some suicidal ideation and also having alcohol intoxication/alcoholism. The patient states that she is an alcoholic. She states that she has increased her alcohol consumption over the past couple of weeks. The patient states that she has been drinking vodka and wine. Her physical exam her vital signs were unremarkable. She does not appear to be in any withdrawal at this time. The patient's blood work was unremarkable. Her alcohol was 203 at 1616. She will be medically cleared at 2000 hrs. for mental health evaluation. Discharge Plan Visit Data Chief Complaint: Detox Request Stated Complaint: DRINKING ALOT, SUICIDAL THOUGHTS ED Provider: Dung Angulo Prescriptions Prescriptions: No Action Trazodone Hcl (Trazodone) 100 MG tablet 150 mg PO QHS Qty: 0 RF: 0 VENLAFAXINE HCL (EFFEXOR EXTENDED REL) 150 MG capsule 300 mg PO DAILY Qty: 0 RF: 0 CYANOCOBALAMIN (VITAMIN B-12 1000 MCG) 1,000 MCG tablet 1,000 mcg IV MONTHLY Qty: 0 RF: 0 Gabapentin 600 MG tablet 600 mg PO BID Qty: 2 RF: 0 LEVOTHYROXINE SODIUM 100 MCG tablet 100 mcg PO DAILY Qty: 30 RF: 5 NICOTINE (NICODERM CQ 14MG PATCH) 14 MG/24 HR DIS 1 patch Transdermal QAM 30 Days Qty: 0 RF: 0 The scribe's documentation has been prepared under my direction and personally reviewed by me in its entirety. I confirm that the note above accurately reflects all work, treatment, procedures, and medical decision making performed by me.
[2018-11-01 17:25] LABS: Amphetamines+Metham, Urine Neg (Neg); Barbiturates, Urine Neg (Neg); Benzodiazepine, Urine Neg (Neg); Cocaine, Urine Neg (Neg); MDMA (Ecstacy), Urine Neg (Neg); Methadone, Urine Neg (Neg); Opiate, Urine Neg (Neg); Phencyclidine, Urine Neg (Neg)
[2018-11-01] MEDS ORDERED: LORazepam 1 MG/2 ML VIAL IV STA (19:06)
[2018-11-01] MEDS ORDERED: SODIUM CHLORIDE 0.9% 1000ML 1,000 ML IV SCH (19:15)
--- NOTE | 2018-11-01 19:15 | Emergency Department Note ---
ED Visit Note ED Physician Sign Out Note: 58 yr old female self reported alcoholic x 10+yrs who has been drinking heavily over the last months. States she is having vague suicidal thoughts/ideation but no plan nor act of furtherance. Admits thoughts are worse when she is drinking. Medically cleared by Dr Angulo other than Etoh quite high. Signed out to me pending further evaluation. She was evaluated by me and is becoming a bit shaky. She has etoh ~150 probably right now. Given she will not be able to be cleared for psych eval until several more hours and already is starting to have withdrawal symptoms, in setting of previous DTs and seizures, I feel bringing in for further monitoring is reasonable. Given further fluids (already had banana bag) along with IV ativan. Martina BURCIAGA [facility] accepts to their service. Jude Castrejon MD
[2018-11-01] MEDS ORDERED: POTASSIUM CHLORIDE 20 MEQ TABCR PO STA (19:30)
--- NOTE | 2018-11-01 19:34 | Emergency Department Note ---
Entered by Breanne Ortiz acting as a scribe for Dung Angulo DO History of Present Illness General Chief complaint: Detox Request Stated complaint: DRINKING ALOT, SUICIDAL THOUGHTS Time Seen by Provider: 11/01/18 15:42 Source: patient and family History of Present Illness Onset (ago): week(s) (few) Location: head Pain Consistency: + other (episode) Quality: + other (suicidal ideation ) Associated symptoms: + loss of appetite and + other (+excessive alchohol intake ) The patient is a 58 year old female who presents to the Emergency Room with complaints of an episode of suicidal ideation over the past few weeks. The patient states that she has been drinking "quite a bit" of alcohol over the last few weeks. The family of the patient reports the patient has been drinking "heavy". The family and the patient are concerned that the patient may hurt herself. The patient states her last alcoholic drink was 10-15 min ago. The patient reports she has drank both vodka and wine today. The family of the patient and the patient request an alcohol detox. The family notes that the patient has a history of seizures. The patient states she has not eaten in 3 days. Home Medications Home Medications Medication Instructions Recorded Confirmed Type Trazodone Hcl (Trazodone) 150 mg PO QHS #0 07/04/10 History CYANOCOBALAMIN (VITAMIN B-12 1000 1,000 mcg IV MONTHLY #0 % 07/27/17 History MCG) VENLAFAXINE HCL (EFFEXOR EXTENDED 300 mg PO DAILY #0 07/27/17 History REL) Gabapentin 600 mg PO BID #2 tab 07/30/17 Rx LEVOTHYROXINE SODIUM 100 mcg PO DAILY #30 tab 07/30/17 Rx NICOTINE (NICODERM CQ 14MG PATCH) 1 patch TRANSDERMAL QAM 30 Days #0 07/30/17 Rx Allergies Allergy/AdvReac Type Severity Reaction Status Date / Time tramadol AdvReac Severe Seizure Verified 07/28/17 21:45 Past Med/Surg History Medical History Depression Anxiety HLD (hyperlipidemia) Graves disease Anemia Meralgia paresthetica Alcohol abuse Family History Other No significant family history Social History Preferred Language: Occitan Feels Safe at Home: Yes Smoking Status: Current every day smoker Hx Substance Use: Yes (huffing gas) Review of Systems See HPI for pertinent positives & negatives. and A total of 10 systems reviewed and were otherwise negative Physical Exam Vital Signs Vital Signs - 24 hr 11/01/18 15:34 11/01/18 16:01 11/01/18 16:05 Temperature 36.9 C Temperature Source Oral Sepsis Recent Fever Within 48 Hours No Sepsis New/Unexplained Change in Mental Status No Sepsis Action Taken by Nursing No Action Required Pulse Rate 82 69 65 Pulse Rate from SpO2 Sensor 69 66 Pulse Rhythm Regular Pulse Strength Normal Respiratory Rate 20 17 15 Respiratory Effort / Characteristics Non-Labored Spontaneous Respiratory Depth Normal Respiratory Pattern Regular Blood Pressure 166/102 H 143/79 H Blood Pressure Mean 123 100 Blood Pressure Position Sitting Pulse Oximetry 98 97 95 Oxygen Delivery Method Room Air 11/01/18 16:30 11/01/18 17:04 11/01/18 17:05 Temperature Temperature Source Sepsis Recent Fever Within 48 Hours Sepsis New/Unexplained Change in Mental Status Sepsis Action Taken by Nursing Pulse Rate 65 69 Pulse Rate from SpO2 Sensor 67 70 Pulse Rhythm Pulse Strength Respiratory Rate 18 14 Respiratory Effort / Characteristics Respiratory Depth Respiratory Pattern Blood Pressure 132/76 Blood Pressure Mean 94 Blood Pressure Position Pulse Oximetry 96 97 Oxygen Delivery Method 11/01/18 17:30 11/01/18 17:32 11/01/18 18:00 Temperature Temperature Source Sepsis Recent Fever Within 48 Hours Sepsis New/Unexplained Change in Mental Status Sepsis Action Taken by Nursing Pulse Rate 69 66 Pulse Rate from SpO2 Sensor 69 66 Pulse Rhythm Pulse Strength Respiratory Rate 17 15 Respiratory Effort / Characteristics Respiratory Depth Respiratory Pattern Blood Pressure 145/80 H 141/81 H Blood Pressure Mean 101 101 Blood Pressure Position Pulse Oximetry 97 97 95 Oxygen Delivery Method Room Air 11/01/18 18:30 Temperature Temperature Source Sepsis Recent Fever Within 48 Hours Sepsis New/Unexplained Change in Mental Status Sepsis Action Taken by Nursing Pulse Rate 75 Pulse Rate from SpO2 Sensor 74 Pulse Rhythm Pulse Strength Respiratory Rate 14 Respiratory Effort / Characteristics Respiratory Depth Respiratory Pattern Blood Pressure 137/88 Blood Pressure Mean 104 Blood Pressure Position Pulse Oximetry 97 Oxygen Delivery Method CONSTITUTIONAL/VITAL SIGNS: Reviewed / noted above. GENERAL: Non-toxic in appearance. INTEGUMENTARY: Warm, dry, and [place]. HEAD: Normocephalic. EYES: without scleral icterus or trauma. ENT/OROPHARYNX: clear and moist. LYMPHADENOPATHY/NECK: Is supple without lymphadenopathy or meningismus. RESPIRATORY: Lungs clear and equal. CARDIOVASCULAR: Regular rate and rhythm. GI/ABDOMEN: Soft and nontender. No organomegaly or pulsatile mass. No rebound or guarding. Normal bowel sounds. EXTREMITIES: Warm and well perfused. BACK: No CVA tenderness. NEUROLOGICAL: Intact without focal deficits. PSYCHIATRIC: normal affect. MUSCULOSKELETAL: Normally developed with good muscle tone. Course 1524: Past medical records reviewed. The patient was evaluated in room A2. A complete history and physical exam was performed. 2030: The patient was signed out to Dr. Castrejon at end of shift. Administered Medications Sodium Chloride (Nss 1000ml) 1,000 mls @ 125 mls/hr IV .Q8H BRIANDA Stop: 12/01/18 19:14 Last Admin: 11/01/18 19:18 Dose: 125 mls/hr Documented by: [id number] Discontinued Medications Multivitamins 10 ml/ Thiamine HCl 100 mg/ Folic Acid 1 mg/Sodium Chloride 1,011.2 mls @ 1,011.2 mls/hr IV .Q1H BRIANDA Stop: 11/01/18 16:59 Last Infusion: 11/01/18 18:34 Dose: 0 mls/hr Documented by: [id number] Admin: 11/01/18 17:22 Dose: 1,011.2 mls/hr Documented by: [id number] Lorazepam (Ativan) 1 mg in 2 mls @ 2 mls/min IV NOW STA Stop: 11/01/18 19:07 Last Admin: 11/01/18 19:20 Dose: 2 mls/min Documented by: [id number] Medical Decision Making Differential Diagnosis Differential diagnosis: Etiologies such as mood disorder, infection, hypoglycemia, electrolyte abnormalities, cardiac sources, intracerebral event, toxicologic, neurologic, as well as others were entertained. Medical Records Attestation: I reviewed the patient's medical records. Home Medications Current Medication List: was personally reviewed by me Laboratory Data Attestation: I reviewed the patient's lab results. Result diagrams: 11/01/18 16:16 11/01/18 16:16 Lab Results 11/01/18 11/01/18 11/01/18 Range/Units 16:16 16:16 16:16 WBC 9.70 (4.8-10.8) K/uL RBC 4.12 L (4.2-5.4) M/uL Hgb 10.1 L (12.0-16.0) g/dL Hct 31.6 L (37-47) % MCV 76.7 L (80-100) fL MCH 24.5 L (25-34) pg MCHC 32.0 (32-36) g/dL RDW Std Deviation 50.7 H (36.4-46.3) fL RDW Coeff of Sheldon 18.1 H (11.5-14.5) % Plt Count 371 (130-400) K/uL MPV 8.4 (7.4-10.4) fL Immature Gran % (Auto) 0.2 % Neut % (Auto) 70.5 % Lymph % (Auto) 21.6 % Logan % (Auto) 6.8 % Eos % (Auto) 0.5 % Baso % (Auto) 0.4 % Immature Gran # (Auto) 0.02 (0.00-0.02) K/uL Neut # (Auto) 6.83 H (1.4-6.5) K/uL Lymph # (Auto) 2.10 (1.2-3.4) K/uL [place] # (Auto) 0.66 H (0.11-0.59) K/uL Eos # (Auto) 0.05 (0-0.5) K/uL Baso # (Auto) 0.04 (0-0.2) K/uL Sodium 142 (136-145) mmol/L Potassium 3.3 L (3.5-5.1) mmol/L Chloride 108 H (98-107) mmol/L Carbon Dioxide 26 (21-32) mmol/L Anion Gap 8.0 (3-11) BUN 9 (7-18) mg/dl Creatinine 0.58 L (0.6-1.2) mg/dl Est Cr Clr Drug Dosing 88.5 ml/min Est GFR ( Amer) 118.6 Est GFR (Non-Af Amer) 102.3 BUN/Creatinine Ratio 16.3 (10-20) Glucose 89 (70-99) mg/dl Calcium 8.4 L (8.5-10.1) mg/dl Total Bilirubin 0.3 (0.2-1) mg/dl AST 20 (15-37) U/L ALT 10 L (12-78) U/L Alkaline Phosphatase 85 (45-117) U/L Total Protein 6.3 L (6.4-8.2) gm/dl Albumin 3.4 (3.4-5.0) gm/dl Globulin 2.9 (2.5-4.0) gm/dl Albumin/Globulin Ratio 1.2 (0.9-2) TSH 0.604 (0.300-4.500) uIu/ml Salicylates (2.8-20) mg/dl Urine Opiates Screen (Neg) Ur Methadone, Qual (Neg) Acetaminophen (10-30) ug/ml Urine Barbiturates (Neg) Ur Phencyclidine (PCP) (Neg) U Amphetamin/Meth Scrn (Neg) MDMA (Ecstasy) Screen (Neg) U Benzodiazepines Scrn (Neg) Ur Cocaine Metabolite (Neg) U Marijuana (THC) Screen (Neg) Ethyl Alcohol mg/dL 203.8 H (0-3) mg/dl 11/01/18 11/01/18 Range/Units 16:16 16:27 WBC (4.8-10.8) K/uL RBC (4.2-5.4) M/uL Hgb (12.0-16.0) g/dL Hct (37-47) % MCV (80-100) fL MCH (25-34) pg MCHC (32-36) g/dL RDW Std Deviation (36.4-46.3) fL RDW Coeff of Sheldon (11.5-14.5) % Plt Count (130-400) K/uL MPV (7.4-10.4) fL Immature Gran % (Auto) % Neut % (Auto) % Lymph % (Auto) % Logan % (Auto) % Eos % (Auto) % Baso % (Auto) % Immature Gran # (Auto) (0.00-0.02) K/uL Neut # (Auto) (1.4-6.5) K/uL Lymph # (Auto) (1.2-3.4) K/uL Logan # (Auto) (0.11-0.59) K/uL Eos # (Auto) (0-0.5) K/uL Baso # (Auto) (0-0.2) K/uL Sodium (136-145) mmol/L Potassium (3.5-5.1) mmol/L Chloride (98-107) mmol/L Carbon Dioxide (21-32) mmol/L Anion Gap (3-11) BUN (7-18) mg/dl Creatinine (0.6-1.2) mg/dl Est Cr Clr Drug Dosing ml/min Est GFR ( Amer) Est GFR (Non-Af Amer) BUN/Creatinine Ratio (10-20) Glucose (70-99) mg/dl Calcium (8.5-10.1) mg/dl Total Bilirubin (0.2-1) mg/dl AST (15-37) U/L ALT (12-78) U/L Alkaline Phosphatase (45-117) U/L Total Protein (6.4-8.2) gm/dl Albumin (3.4-5.0) gm/dl Globulin (2.5-4.0) gm/dl Albumin/Globulin Ratio (0.9-2) TSH (0.300-4.500) uIu/ml Salicylates 3.5 (2.8-20) mg/dl Urine Opiates Screen Neg (Neg) Ur Methadone, Qual Neg (Neg) Acetaminophen < 2 L (10-30) ug/ml Urine Barbiturates Neg (Neg) Ur Phencyclidine (PCP) Neg (Neg) U Amphetamin/Meth Scrn Neg (Neg) MDMA (Ecstasy) Screen Neg (Neg) U Benzodiazepines Scrn Neg (Neg) Ur Cocaine Metabolite Neg (Neg) U Marijuana (THC) Screen Neg (Neg) Ethyl Alcohol mg/dL (0-3) mg/dl MDM Narrative This is a 58-year-old female who presents to the ED with a chief complaint of alcoholism and alcohol intoxication. The patient states that she also had a little suicidal ideation. She states that she has been drinking heavily for the past couple of weeks. She has been through rehab previously for alcohol. The patient states that she would like to have detox. The patient states that she drank some vodka and wine this morning just prior to arrival. The patient currently is not having any significant symptoms. She was treated with a banana bag. Her vital signs are stable. The patient will be clear at 8 PM. Patient will be signed out to Dr. Cash for further assessment. Impression & Plan Alcoholic intoxication, Acute alcoholism, Desire for detoxification Discharge Plan Visit Data Chief Complaint: Detox Request Stated Complaint: DRINKING ALOT, SUICIDAL THOUGHTS ED Provider: Jude Castrejon Discharge Problem: Alcoholic intoxication, Acute alcoholism, Desire for detoxification Forms Stand Alone Forms: My [facility] Prescriptions Prescriptions: No Action Trazodone Hcl (Trazodone) 100 MG tablet 150 mg PO QHS Qty: 0 RF: 0 VENLAFAXINE HCL (EFFEXOR EXTENDED REL) 150 MG capsule 300 mg PO DAILY Qty: 0 RF: 0 CYANOCOBALAMIN (VITAMIN B-12 1000 MCG) 1,000 MCG tablet 1,000 mcg IV MONTHLY Qty: 0 RF: 0 Gabapentin 600 MG tablet 600 mg PO BID Qty: 2 RF: 0 LEVOTHYROXINE SODIUM 100 MCG tablet 100 mcg PO DAILY Qty: 30 RF: 5 NICOTINE (NICODERM CQ 14MG PATCH) 14 MG/24 HR DIS 1 patch Transdermal QAM 30 Days Qty: 0 RF: 0 The scribe's documentation has been prepared under my direction and personally reviewed by me in its entirety. I confirm that the note above accurately reflects all work, treatment, procedures, and medical decision making performed by me.
[2018-11-01 19:41] LABS: Magnesium 2.1 mg/dl (1.8-2.4)
--- NOTE | 2018-11-01 20:06 | History & Physical Report ---
Date of Service November 01, 2018 Assessment & Plan (1) Alcohol withdrawal: History of alcohol withdrawal seizures hypokalemia hypothyroidism, TSH within normal limits anxiety/mood disorder, suboptimal; patient with suicidal ideations although without plan ongoing tobacco abuse chronic anemia likely secondary to iron deficiency anemia secondary to gastric bypass, hemoglobin at baseline; patient not compliant with home iron supplementation the last few months Medical telemetry DT precautions Replace potassium Psych consult RE suicidality, suboptimal depression Nicotine patch Initiate iron supplementation prescribed by PCP if patient agreeable. DVT prophylaxis. Lovenox subcu Full code History of Present Illness Chief Complaint: Detox Primary Care Provider: Ren Mcbride MD History obtained from patient and records. Medical history significant for hypothyroidism, anxiety/mood disorder, ongoing tobacco/alcohol abuse, history of alcohol withdrawal seizures at rehab as per patient, chronic anemia baseline hemoglobin 10-11. Recent confinement Jul, 2017 for alcohol withdrawal. Patient went back to drinking a few months after discharge. Today patient decided to stop drinking and to detox. Patient admits to suicidal ideation without plan. At the ER, patient given IV Ativan for tremors. Patient denies chest pain, S OB. 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 Allergies Allergy/AdvReac Type Severity Reaction Status Date / Time tramadol AdvReac Severe Seizure Verified 11/01/18 20:11 Home Medications Home Medications Medication Instructions Recorded Confirmed Type trazodone 150 mg PO HS #0 07/04/10 11/01/18 History cyanocobalamin (vitamin B-12) 1,000 mcg IM MONTHLY #0 % 07/27/17 11/01/18 History venlafaxine 300 mg PO QAM #0 07/27/17 11/01/18 History levothyroxine 100 mcg PO QAM 11/01/18 11/01/18 History naltrexone 50 mg PO DAILY 11/01/18 11/01/18 History Past Med/Surg History Medical History Depression Anxiety HLD (hyperlipidemia) Graves disease Anemia Meralgia paresthetica Alcohol abuse Family History Other No significant family history Social History Preferred Language: Georgian Communication Ability: Effective [employer] Associate Required: No Beliefs That Will Affect Care: None Current Living Situation: Spouse Other Information That Helps Us Care for You: No Feels Safe at Home: Yes Safety Concerns: Feels Safe At This Time Smoking Status: Current every day smoker Tobacco Type: cigarettes ; Do You Dip or Chew Tobacco: No ; Second Hand Exposure: No ; Tobacco Cessation Education Requested by Patient: No Hx Alcohol Use: Yes Alcohol type: wine and hard liquor Hx Substance Use: Yes (previously states alcohol is drug of choice at this time) substance use type: former substance user, marijuana, painkillers and prescription drug Substance Use Type Other:: veteranary drugs Last Used Substance: Unknown Last Used Substance Other:: states last time was years ago Review of Systems Review of Systems: As per HPI, all 10 systems reviewed, all other ROS negative Physical Exam Physical Exam: GENERAL: Comfortable, pleasant, no respiratory distress SKIN: Pallor, warm HEENT: Pale palpebral conjunctivae, no ptosis, dry buccal mucosa NECK : Supple, no tenderness CHEST : CTA, no tenderness HEART : RRR, no obvious murmurs ABDOMEN: Some distention, nontender EXTREMITIES : No LE swelling/tenderness, no other conspicuous deformities noted NEUROLOGIC : Coherent, no facial asymmetry, no other gross focality Results & Data Vital Signs (Past 12 Hours) Vital Signs Temp Pulse Pulse Resp BP BP Pulse Ox 11/01/18 19:30 72 18 132/75 97 11/01/18 18:30 75 14 137/88 97 11/01/18 18:00 66 15 141/81 H 95 11/01/18 17:32 97 11/01/18 17:30 69 17 145/80 H 97 11/01/18 17:05 69 14 132/76 97 11/01/18 17:04 96 11/01/18 16:30 65 18 11/01/18 16:05 65 15 95 11/01/18 16:01 69 17 143/79 H 97 11/01/18 15:34 36.9 C 82 20 166/102 H 98 Laboratory Results Laboratory Results WBC 9.70 K/uL (4.8-10.8) 11/01/18 16:16 RBC 4.12 M/uL (4.2-5.4) L 11/01/18 16:16 Hgb 10.1 g/dL (12.0-16.0) L 11/01/18 16:16 Hct 31.6 % (37-47) L 11/01/18 16:16 MCV 76.7 fL (80-100) L 11/01/18 16:16 MCH 24.5 pg (25-34) L 11/01/18 16:16 MCHC 32.0 g/dL (32-36) 11/01/18 16:16 RDW Std Deviation 50.7 fL (36.4-46.3) H 11/01/18 16:16 RDW Coeff of Sheldon 18.1 % (11.5-14.5) H 11/01/18 16:16 Plt Count 371 K/uL (130-400) 11/01/18 16:16 MPV 8.4 fL (7.4-10.4) 11/01/18 16:16 Immature Gran % (Auto) 0.2 % 11/01/18 16:16 Neut % (Auto) 70.5 % 11/01/18 16:16 Lymph % (Auto) 21.6 % 11/01/18 16:16 [place] % (Auto) 6.8 % 11/01/18 16:16 Eos % (Auto) 0.5 % 11/01/18 16:16 Baso % (Auto) 0.4 % 11/01/18 16:16 Immature Gran # (Auto) 0.02 K/uL (0.00-0.02) 11/01/18 16:16 Neut # (Auto) 6.83 K/uL (1.4-6.5) H 11/01/18 16:16 Lymph # (Auto) 2.10 K/uL (1.2-3.4) 11/01/18 16:16 [place] # (Auto) 0.66 K/uL (0.11-0.59) H 11/01/18 16:16 Eos # (Auto) 0.05 K/uL (0-0.5) 11/01/18 16:16 Baso # (Auto) 0.04 K/uL (0-0.2) 11/01/18 16:16 Sodium 142 mmol/L (136-145) 11/01/18 16:16 Potassium 3.3 mmol/L (3.5-5.1) L 11/01/18 16:16 Chloride 108 mmol/L (98-107) H 11/01/18 16:16 Carbon Dioxide 26 mmol/L (21-32) 11/01/18 16:16 Anion Gap 8.0 (3-11) 11/01/18 16:16 BUN 9 mg/dl (7-18) 11/01/18 16:16 Creatinine 0.58 mg/dl (0.6-1.2) L 11/01/18 16:16 Est Cr Clr Drug Dosing 88.5 ml/min 11/01/18 16:16 Est GFR ( Amer) 118.6 11/01/18 16:16 Est GFR (Non-Af Amer) 102.3 11/01/18 16:16 BUN/Creatinine Ratio 16.3 (10-20) 11/01/18 16:16 Glucose 89 mg/dl (70-99) 11/01/18 16:16 Calcium 8.4 mg/dl (8.5-10.1) L 11/01/18 16:16 Magnesium 2.1 mg/dl (1.8-2.4) 11/01/18 16:16 Total Bilirubin 0.3 mg/dl (0.2-1) 11/01/18 16:16 AST 20 U/L (15-37) 11/01/18 16:16 ALT 10 U/L (12-78) L 11/01/18 16:16 Alkaline Phosphatase 85 U/L (45-117) 11/01/18 16:16 Total Protein 6.3 gm/dl (6.4-8.2) L 11/01/18 16:16 Albumin 3.4 gm/dl (3.4-5.0) 11/01/18 16:16 Globulin 2.9 gm/dl (2.5-4.0) 11/01/18 16:16 Albumin/Globulin Ratio 1.2 (0.9-2) 11/01/18 16:16 TSH 0.604 uIu/ml (0.300-4.500) 11/01/18 16:16 Salicylates 3.5 mg/dl (2.8-20) 11/01/18 16:16 Urine Opiates Screen Neg (Neg) 11/01/18 16:27 Ur Methadone, Qual Neg (Neg) 11/01/18 16:27 Acetaminophen < 2 ug/ml (10-30) L 11/01/18 16:16 Urine Barbiturates Neg (Neg) 11/01/18 16:27 Ur Phencyclidine (PCP) Neg (Neg) 11/01/18 16:27 U Amphetamin/Meth Scrn Neg (Neg) 11/01/18 16:27 MDMA (Ecstasy) Screen Neg (Neg) 11/01/18 16:27 U Benzodiazepines Scrn Neg (Neg) 11/01/18 16:27 Ur Cocaine Metabolite Neg (Neg) 11/01/18 16:27 U Marijuana (THC) Screen Neg (Neg) 11/01/18 16:27 Ethyl Alcohol mg/dL 203.8 mg/dl (0-3) H 11/01/18 16:16
[2018-11-01] MEDS ORDERED: LORazepam 2 MG/4 ML VIAL IV PRN (20:58)
[2018-11-01] MEDS ORDERED: ATIVAN IV ALCOHOL WITHDRAWL IV SCH (20:58)
[2018-11-01] MEDS ORDERED: PROMETHAZINE HCL 12.5 MG in SODIUM CHLORIDE 0.9% 50 ML IV PRN (20:58)
[2018-11-01] MEDS ORDERED: LORazepam 3 MG/6 ML VIAL IV PRN (20:58)
[2018-11-01] MEDS ORDERED: ACETAMINOPHEN 325 MG TAB PO PRN (20:58)
[2018-11-01] MEDS ORDERED: GABAPENTIN 1200MG ALCOHOL WITHDRAWAL LOAD PO STA (20:58)
[2018-11-01] MEDS ORDERED: GABAPENTIN 600 MG TAB PO SCH (21:15)
[2018-11-01] MEDS: NICOTINE 21 MG/24 HR TDSY TD SCH (21:36)
[2018-11-01] MEDS: TRAZODONE HCL 50 MG TAB PO SCH (21:37)
[2018-11-01] MEDS: LORazepam 1 MG/2 ML VIAL IV PRN (21:39)
[2018-11-02] MEDS: LEVOTHYROXINE SODIUM 100 MCG TABLET PO SCH (05:54)
[2018-11-02] MEDS: GABAPENTIN 600 MG TAB PO SCH ×3 (05:55→21:15)
[2018-11-02 07:50] LABS: Basophils # (auto) 0.03 K/uL (0-0.2); Basophils % (auto) 0.4 %; Eosinophils # (auto) 0.05 K/uL (0-0.5); Eosinophils % (auto) 0.6 %; Hematocrit (blood only) 30.7 % (37-47); Hemoglobin 9.5 g/dL (12.0-16.0); Immature Granulocytes # (auto) 0.01 K/uL (0.00-0.02); Immature Granulocytes % (auto) 0.1 %; Lymphocytes # (auto) 1.24 K/uL (1.2-3.4); Lymphocytes % (auto) 15.3 %; Mean Corpuscular Hgb Conc 30.9 g/dL (32-36); Mean Corpuscular Volume 78.5 fL (80-100); Mean Platelet Volume 8.6 fL (7.4-10.4); Monocytes # (auto) 0.69 K/uL (0.11-0.59); Monocytes % (auto) 8.5 %; Neutrophils # (auto) 6.08 K/uL (1.4-6.5); Neutrophils % (auto) 75.1 %; Platelet Count 315 K/uL (130-400); RDW Coefficient of Variation 18.6 % (11.5-14.5); RDW Standard Deviation 53.3 fL (36.4-46.3); Red Blood Count 3.91 M/uL (4.2-5.4)
[2018-11-02 08:22] LABS: BUN Creatinine Ratio 21.6 (10-20); Calcium 8.1 mg/dl (8.5-10.1); Creatinine Clr Calc Pharmacy 88.5 ml/min; Est GFR (African American) 118.6; Est GFR (Non-African American) 102.3; Potassium 4.1 mmol/L (3.5-5.1)
[2018-11-02] MEDS: ENOXAPARIN INJ 30 MG/0.3 ML SYR SQ SCH (08:45)
[2018-11-02] MEDS: FOLIC ACID 1 MG TAB PO SCH (08:46)
[2018-11-02] MEDS: MULTIVITAMIN TAB PO SCH (08:46)
[2018-11-02] MEDS: VENLAFAXINE HCL XR 150 MG CAPXR PO SCH (08:46)
[2018-11-02] MEDS: FERROUS SULFATE 325 MG TAB PO SCH ×2 (08:46→16:48)
[2018-11-02] MEDS: THIAMINE HCL 100 MG TAB PO SCH (08:46)
[2018-11-02] MEDS: NICOTINE 21 MG/24 HR TDSY TD SCH (10:06)
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
--- NOTE | 2018-11-02 15:12 | Hospitalist Progress Note ---
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 chronic anemia Likely secondary to iron deficiency anemia secondary to gastric bypass, Alcohol use Hb at baseline Non compliant with iron supplementation Continue Iron Supplements DVT Px: Lovenox SQ Code Status Full code Disposition Expect to discharge home when stable Subjective Patient is seen and examined at bedside Doing better today Interested in alcohol detox, but refuses inpatient rehab Denies any withdrawal symptoms today Has mild abdominal discomfort, ongoing intermittent loose BMs Denies any recent antibiotic use Reports intermittent dizziness Denies chest pain, shortness of breath, nausea Review of Systems Review of Systems: All systems reviewed & are unremarkable except as noted in HPI & below Physical Exam Physical Exam: Physical Exam: Vitals signs as noted above General Appearance:Moderately built and nourished, no apparent distress Head: normocephalic, Atraumatic Eyes: normal inspection, EOMI Neck: supple, Trachea midline Respiratory/Chest: Normal breath sounds, CTA Cardiovascular: S1, S2, No murmur Abdomen/GI:Soft, Non tender, Bowel sounds present Extremities/Musculoskelatal:normal inspection, no edema Neurologic/Psych:AAOX3, grossly no focal neurological deficits Skin: normal color, warm Results & Data Vital Signs (Past 12 Hours) Vital Signs Temp Pulse Pulse Resp BP BP Pulse Ox 11/02/18 14:46 36.5 C 77 20 131/74 96 11/02/18 12:00 37.1 C 103 H 16 125/84 96 11/02/18 07:44 37.0 C 71 16 129/77 96 11/02/18 07:30 68 11/02/18 06:25 36.7 C 62 18 132/72 98 11/02/18 03:23 36.6 C 75 18 123/72 96 Laboratory Results Short CBC 11/01/18 11/02/18 Range/Units 16:16 07:12 WBC 9.70 8.10 (4.8-10.8) K/uL Hgb 10.1 L 9.5 L (12.0-16.0) g/dL Hct 31.6 L 30.7 L (37-47) % Plt Count 371 315 (130-400) K/uL BMP 11/01/18 11/02/18 16:16 07:12 Sodium 142 143 Potassium 3.3 L 4.1 D Chloride 108 H 109 H Carbon Dioxide 26 29 BUN 9 12 Creatinine 0.58 L 0.58 L Glucose 89 100 H Calcium 8.4 L 8.1 L Liver Function 11/01/18 Range/Units 16:16 Total Bilirubin 0.3 (0.2-1) mg/dl AST 20 (15-37) U/L ALT 10 L (12-78) U/L Alkaline Phosphatase 85 (45-117) U/L Albumin 3.4 (3.4-5.0) gm/dl
[2018-11-02] MEDS: LORazepam 1 MG/2 ML VIAL IV PRN (16:48)
[2018-11-02] MEDS: TRAZODONE HCL 50 MG TAB PO SCH (21:14)
[2018-11-02] MEDS ORDERED: GABAPENTIN 600 MG TAB PO SCH (22:00)
[2018-11-03] MEDS: LEVOTHYROXINE SODIUM 100 MCG TABLET PO SCH (06:25)
[2018-11-03 06:53] LABS: Hematocrit (blood only) 33.6 % (37-47); Hemoglobin 10.3 g/dL (12.0-16.0); Mean Corpuscular Hgb Conc 30.7 g/dL (32-36); Mean Corpuscular Volume 79.8 fL (80-100); Mean Platelet Volume 8.8 fL (7.4-10.4); Platelet Count 309 K/uL (130-400); RDW Coefficient of Variation 18.5 % (11.5-14.5); RDW Standard Deviation 53.1 fL (36.4-46.3); Red Blood Count 4.21 M/uL (4.2-5.4)
[2018-11-03 07:27] LABS: BUN Creatinine Ratio 17.5 (10-20); Calcium 8.3 mg/dl (8.5-10.1); Creatinine Clr Calc Pharmacy 76.6 ml/min; Est GFR (African American) 113.1; Est GFR (Non-African American) 97.6; Potassium 4.1 mmol/L (3.5-5.1)
[2018-11-03] MEDS: FOLIC ACID 1 MG TAB PO SCH (07:46)
[2018-11-03] MEDS: VENLAFAXINE HCL XR 150 MG CAPXR PO SCH (07:46)
[2018-11-03] MEDS: FERROUS SULFATE 325 MG TAB PO SCH ×2 (07:46→16:33)
[2018-11-03] MEDS: ENOXAPARIN INJ 30 MG/0.3 ML SYR SQ SCH (07:46)
[2018-11-03] MEDS: GABAPENTIN 600 MG TAB PO SCH ×3 (07:47→20:59)
[2018-11-03] MEDS: MULTIVITAMIN TAB PO SCH (07:47)
[2018-11-03] MEDS: NICOTINE 21 MG/24 HR TDSY TD SCH (07:47)
[2018-11-03] MEDS: THIAMINE HCL 100 MG TAB PO SCH (07:48)
--- NOTE | 2018-11-03 16:16 | Hospitalist Progress Note ---
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 chronic anemia Likely secondary to iron deficiency anemia secondary to gastric bypass, Alcohol use Hb at baseline Non compliant with iron supplementation Continue Iron Supplements DVT Px: Lovenox SQ Code Status Full code Disposition Expect to discharge home when stable Subjective Patient is seen and examined at bedside Jittery and diaphoretic this morning which later resolved Not interested in Inpatient Rehab for Detox No diarrhea today Denies chest pain, shortness of breath, nausea No other complaints Review of Systems Review of Systems: All systems reviewed & are unremarkable except as noted in HPI & below Physical Exam Physical Exam: Physical Exam: Vitals signs as noted above General Appearance:Moderately built and nourished, no apparent distress Head: normocephalic, Atraumatic Eyes: normal inspection, EOMI Neck: supple, Trachea midline Respiratory/Chest: Normal breath sounds, CTA Cardiovascular: S1, S2, No murmur Abdomen/GI:Soft, mild discomfort on palpation , Bowel sounds present Extremities/Musculoskelatal:normal inspection, no edema Neurologic/Psych:AAOX3, grossly no focal neurological deficits Skin: normal color, warm Results & Data Vital Signs (Past 12 Hours) Vital Signs Temp Pulse Resp BP BP Pulse Ox 11/03/18 14:30 37.2 C 70 16 134/87 95 11/03/18 11:28 37.2 C 80 18 129/81 96 11/03/18 10:29 37.2 C 85 16 127/82 97 11/03/18 06:27 37 C 77 20 115/74 96 11/03/18 04:33 36.8 C 70 20 128/75 98 Laboratory Results Short CBC 11/03/18 Range/Units 06:34 WBC 6.20 (4.8-10.8) K/uL Hgb 10.3 L (12.0-16.0) g/dL Hct 33.6 L (37-47) % Plt Count 309 (130-400) K/uL BMP 11/03/18 06:34 Sodium 144 Potassium 4.1 Chloride 108 H Carbon Dioxide 29 BUN 12 Creatinine 0.67 Glucose 97 Calcium 8.3 L
[2018-11-03] MEDS: TRAZODONE HCL 50 MG TAB PO SCH (21:50)
[2018-11-04] MEDS ORDERED: GABAPENTIN 600 MG TAB PO SCH
[2018-11-04 05:27] LABS: Hematocrit (blood only) 34.8 % (37-47); Hemoglobin 10.6 g/dL (12.0-16.0); Mean Corpuscular Hgb Conc 30.5 g/dL (32-36); Mean Corpuscular Volume 80.7 fL (80-100); Mean Platelet Volume 8.9 fL (7.4-10.4); Platelet Count 311 K/uL (130-400); RDW Coefficient of Variation 18.3 % (11.5-14.5); RDW Standard Deviation 53.6 fL (36.4-46.3); Red Blood Count 4.31 M/uL (4.2-5.4); White Blood Count 6.25 K/uL (4.8-10.8)
[2018-11-04] MEDS: LEVOTHYROXINE SODIUM 100 MCG TABLET PO SCH (05:35)
[2018-11-04 05:52] LABS: Creatinine Clr Calc Pharmacy 73.3 ml/min; Est GFR (African American) 111.5; Est GFR (Non-African American) 96.2
[2018-11-04] MEDS: GABAPENTIN 600 MG TAB PO SCH (07:35)
[2018-11-04] MEDS: MULTIVITAMIN TAB PO SCH (07:35)
[2018-11-04] MEDS: FERROUS SULFATE 325 MG TAB PO SCH (07:35)
[2018-11-04] MEDS: THIAMINE HCL 100 MG TAB PO SCH (07:35)
[2018-11-04] MEDS: FOLIC ACID 1 MG TAB PO SCH (07:35)
[2018-11-04] MEDS: VENLAFAXINE HCL XR 150 MG CAPXR PO SCH (07:35)
[2018-11-04] MEDS: ENOXAPARIN INJ 30 MG/0.3 ML SYR SQ SCH (07:36)
[2018-11-04] MEDS: NICOTINE 21 MG/24 HR TDSY TD SCH (07:36)
--- NOTE | 2018-11-04 13:12 | Hospitalist Progress Note ---
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 chronic anemia Likely secondary to iron deficiency anemia secondary to gastric bypass, Alcohol use Hb at baseline Non compliant with iron supplementation Continue Iron Supplements DVT Px: Lovenox SQ Code Status Full code Disposition Expect to discharge home when stable Subjective Patient is seen and examined at bedside Had nausea earlier today which later resolved Doing much better today Eager to get discharged No withdrawal symptoms Denies chest pain, shortness of breath, dizziness No other complaints Review of Systems Review of Systems: All systems reviewed & are unremarkable except as noted in HPI & below Physical Exam Physical Exam: Physical Exam: Vitals signs as noted above General Appearance:Moderately built and nourished, no apparent distress Head: normocephalic, Atraumatic Eyes: normal inspection, EOMI Neck: supple, Trachea midline Respiratory/Chest: Normal breath sounds, CTA Cardiovascular: S1, S2, No murmur Abdomen/GI:Soft, mild discomfort on palpation , Bowel sounds present Extremities/Musculoskelatal:normal inspection, no edema Neurologic/Psych:AAOX3, grossly no focal neurological deficits Skin: normal color, warm Results & Data Vital Signs (Past 12 Hours) Vital Signs Temp Pulse Pulse Resp BP BP Pulse Ox 11/04/18 12:00 37.0 C 64 18 110/64 98 11/04/18 09:51 36.8 C 67 72 18 111/71 116/74 100 11/04/18 07:01 36.8 C 67 18 116/74 100 11/04/18 03:48 36.6 C 64 18 108/71 96 Laboratory Results Short CBC 11/04/18 Range/Units 04:59 WBC 6.25 (4.8-10.8) K/uL Hgb 10.6 L (12.0-16.0) g/dL Hct 34.8 L (37-47) % Plt Count 311 (130-400) K/uL BMP 11/04/18 04:59 Creatinine 0.70
--- NOTE | 2018-11-04 13:15 | Discharge Summary ---
Date of Service November 04, 2018 Admission HPI Per Admitting Provider Per medical admission H&P: History obtained from patient and records. Medical history significant for hypothyroidism, anxiety/mood disorder, ongoing tobacco/alcohol abuse, history of alcohol withdrawal seizures at rehab as per patient, chronic anemia baseline hemoglobin 10-11. Recent confinement Jul, 2017 for alcohol withdrawal. Patient went back to drinking a few months after discharge. Today patient decided to stop drinking and to detox. Patient admits to suicidal ideation without plan. At the ER, patient given IV Ativan for tremors. Patient denies chest pain, SOB. Per information obtained from psychiatric liaison nurse, patient with long history of alcoholism for 15 years. Expressed suicidal thoughts at time of initial presentation to ER without plan. She reported alcohol use for several months including wine and vodka. She endorsed feelings of hopelessness, appetite loss, diminished concentration, low energy. Sleep stable. Anxiety increased but denied panic. Reported history of multiple inpatient rehab attempts. Expressed disinterest in returning to inpatient rehab program presently. Active in AA. Reported compliance with trazodone, Effexor, and naltrexone prescribed by PCP, Dr. Ren Mcbride. She noted pending intake appointment with psychiatrist and therapist through [facility] on December 09. Reviewing her record I see that she is on the AWSS protocol with gabapentin taper and Ativan as needed. She is being treated with appropriate supportive care including vitamin supplementation. She is composed and pleasant on approach. She provides a similar history on self-report this morning stating that she came to the hospital to "dry out" and in particular to reduce her immediate access to alcohol. She tells me that she has been drinking essentially throughout the entirety of the day for several months drinking two 4 packs of wine and a pint of vodka daily. She expresses a desire to achieve and maintain sobriety. "I have had periods of sobriety and things go well and I feel good." She acknowledges negative impact on mood associated with alcohol use as well as feelings of guilt. While she acknowledges the passive wish that she reported in the ER, she states this only occurs in setting of intoxication and is quite convincing in her denial of active intent or plan for self-harm or harm to others. She reports feeling "comfortable" on the gabapentin so far and denies concern for side effects. She is uncertain if she has taken that in the past. She does not believe that the naltrexone has been effective for maintenance of abstinence and she asks about Campral instead as a friend of hers has taken it with good effect. She denies known history of liver or kidney disease. She denies signs of active withdrawal today including shay llucinations, confusion, or tremor. Unfortunately she again declines inpatient rehab referral feeling that she has already attempted that multiple times but is willing to pursue outpatient options potentially including intensive outpatient treatment. She expresses willingness and even eagerness to begin care with the outpatient psychiatrist through [facility] as noted above. She reports good com pliance with the Effexor and trazodone and feels that these have historically been helpful for her. Today she describes feeling hopeful about the future and is appreciative of care. Admission Exam Per Admitting Provider Physical Exam Physical Exam: GENERAL: Comfortable, pleasant, no respiratory distress SKIN: Pallor, warm HEENT: Pale palpebral conjunctivae, no ptosis, dry buccal mucosa NECK : Supple, no tenderness CHEST : CTA, no tenderness HEART : RRR, no obvious murmurs ABDOMEN: Some distention, nontender EXTREMITIES : No LE swelling/tenderness, no other conspicuous deformities noted NEUROLOGIC : Coherent, no facial asymmetry, no other gross focality Principal Diagnosis Discharge Information Discharge Diagnosis Alcohol us disorder Discharge Goals Decrease discomfort,Improve function,Improve disease control Discharge Activity Limitations Resume your previous activity Discharge Data Allergies Allergy/AdvReac Type Severity Reaction Status Date / Time tramadol AdvReac Severe Seizure Verified 11/01/18 20:11 Consultations 11/01/18 19:15 ED Decision to Admit Stat 11/01/18 20:58 Consult Case Management - Discharge Planning Routine Consult Psychiatry Routine Hospital Course (1) Alcohol withdrawal: Alcohol us disorder H/O alcohol withdrawal seizures Interested in Detoxification Refuses Inpatient rehab placement Interested in AA meetings Appreciate Psychiatry Input Continue gabapentin 600mg TID for Maintenance to decrease cravings as recommended by psychiatry Continue thiamine, folic acid Hypokalemia Resolved Monitor and replace as needed Hypothyroidism TSH normal Continue Levothyroxine Anxiety/mood disorder Continue Effexor, trazodone Appreciate psychiatry Ongoing tobacco abuse Continue Nicotine Patch Tim[place] Faller to quit smoking chronic anemia Likely secondary to iron deficiency anemia secondary to gastric bypass, Alcohol use Hb at baseline Non compliant with iron supplementation Continue Iron Supplements DVT Px: Lovenox SQ Code Status Full code Disposition Expect to discharge home when stable Total Time Total Time Spent Total Time Spent (In Minutes): 36 minutes Total Time Includes: Examination of the Patient, Discharge Planning, Medication Reconciliation and Other Discharge Plan Discharge Items Patient Disposition: Home - Self-Care Reason For Visit: ETOH WITHDRAWAL Discharge Diagnosis: Alcohol us disorder Discharge Goals: Decrease discomfort, Improve disease control and Improve function Activity: Resume your previous activity Exercise/Sports: Gradually increase as tolerated Non-emergency contact: Primary Care Provider Call non-emergency contact if: you have any medication questions, your symptoms worsen, your pain is not controlled, your pain is worsening, your pain is unusual for you, your pain is concerning for you and you have a fever Follow-up/Referrals: Ren Mcbride MD [Primary Care Provider] - Diet: Heart Healthy and Lactose Intolerant Addtl Provider Instructions: Follow-up with your primary care physician Dr. Mcbride on November 11, 2018 at 11:25 AM Seek immediate medical attention if your symptoms reoccur or worsen Prescriptions: New gabapentin 600 mg Tablet 600 mg PO TID 30 Days Qty: 90 RF: 0 thiamine HCl (vitamin B1) [Vitamin B-1] 100 mg Tablet 100 mg PO QAM 30 Days Qty: 30 RF: 0 folic acid 1 mg Tablet 1 mg PO QAM 30 Days Qty: 30 RF: 0 ferrous sulfate 325 mg (65 mg iron) Tablet,Delayed Release (Dr/Ec) 325 mg PO DAILY 30 Days Qty: 30 RF: 0 levothyroxine [Synthroid] 100 mcg Tablet 100 mcg PO DAILYBB Qty: 0 RF: 0 Continued trazodone 150 mg Tablet 150 mg PO HS Qty: 0 RF: 0 venlafaxine 150 mg Tablet Extended Release 24hr 300 mg PO QAM Qty: 0 RF: 0 cyanocobalamin (vitamin B-12) 1,000 mcg/mL Solution 1,000 mcg IM MONTHLY Qty: 0 RF: 0 levothyroxine 100 mcg Tablet 100 mcg PO QAM RF: 0 naltrexone 50 mg PO DAILY RF: 0 Stand-Alone Forms: [facility] Discharge Orders: Discharge Order (Routine); Ordered 11/04/18 Ordered By: Srikanth Rosario Admission Data Admit Date/Time: 11/01/18 20:09 Attending Provider: Srikanth Rosario Admit Provider: Palomo Sidhu Primary Care Provider: Ren Mcbride Other Providers: Yeni Hughes ; Tram Palmer Service: Telemetry Medical Other Interventions: Discharge Summary Assessment (RN) Last Done: 11/04/18 09:51 Pending Studies at Discharge: No DC Date/Time DO NOT enter until pt leaves facility: 11/04/18 13:55
[2018-11-05] MEDS ORDERED: GABAPENTIN 600 MG TAB PO SCH (12:00)
== END 2018-11-04 13:55 | disposition home or self-care (01) | DRG 897 ==
LOC: ED 15:29 → 2W 20:09

== ENCOUNTER 2020-02-22 07:34 | Observation (INO) ==
--- NOTE | 2020-01-22 13:56 | PAT Medication Instructions ---
Medication Instructions Date of Service January 22, 2020 Home Medications cyanocobalamin (vitamin B-12) 1,000 mcg IM MONTHLY levothyroxine 112 mcg PO QAM naltrexone 50 mg PO QAM venlafaxine 300 mg PO QAM acetaminophen [Tylenol Extra Strength] 1,000 mg PO Q6H PRN DO NOT take the morning of surgery cyanocobalamin (vitamin B-12) 1,000 mcg IM MONTHLY naltrexone 50 mg PO QAM Take morning of surgery With a small sip of water, OTHERWISE NOTHING TO EAT OR DRINK AFTER MIDNIGHT: levothyroxine 112 mcg PO QAM venlafaxine 300 mg PO QAM acetaminophen [Tylenol Extra Strength] 1,000 mg PO Q6H PRN (use if needed; please bring with you to hospital day of surgery if possible) Other Notes If you have any questions please call us at [phone] or [phone] or [phone] or [phone]
--- NOTE | 2020-01-26 10:22 | Anesthesiology Consultation ---
Date of Service January 26, 2020 Assessment & Plan (1) Encounter for pre-operative examination: - Preop EKG: Unusual P axis, possible ectopic atrial bradycardia. Patient with no cardiopulmonary complaints/palpitations at PAT visit from same date as EKG. Case reviewed with Dr. Simon. He feels that no further cardiology testing or evaluation needed prior to surgery from his perspective. - Per assessment on 01/25: Travel screen negative. No known COVID-19 positive contacts or current COVID-19 related symptoms. Surgeon arranging preop COVID testing. Awaiting results. - Hx ETOH abuse x 15 years, no ETOH use x 18 months (sober)/on Naltrexone. Chart Review Chart Review: Acceptable Risk for Surgery and Patient seen in Pre Admission Testing Teaching & Discussion Pre-Anesthesia Teaching/Discussion Notes: Instructed NPO after midnight before surgery,except medications with 15 cc of water. Medication instructions provided according to the [facility] guidelines. History Surgery Operation Date: 02/22/20 07:30 Proposed Procedures p Right Total Knee Arthroplasty - Kaushik Ayers, Height/Weight Height: 5 ft 3 in Weight: 77.2 kg Allergies Allergy/AdvReac Type Severity Reaction Status Date / Time tramadol AdvReac Severe ineffective Verified 01/26/20 10:16 for pain control Medications Home Medications Medication Instructions Recorded Confirmed Last Taken cyanocobalamin (vitamin B-12) 1,000 mcg IM MONTHLY #0 % 07/27/17 01/26/20 09/29/18 levothyroxine 112 mcg PO QAM 12/17/18 01/26/20 Unknown naltrexone 50 mg PO QAM 12/17/18 01/26/20 Unknown venlafaxine 300 mg PO QAM 12/17/18 01/26/20 Unknown acetaminophen [Tylenol Extra 1,000 mg PO Q6H PRN 01/19/20 01/26/20 Unknown Strength] oxycodone-acetaminophen 5 mg-325 1 tab PO Q6 PRN #30 tab 01/26/20 01/26/20 Unknown mg tablet Past Medical History Medical History Anemia chronic s/p gastric bypass, no known of transfusions Anxiety Arthritis Depression Graves disease s/p thyroidectomy HLD (hyperlipidemia) Meralgia paresthetica Obesity Exercise / Class Metabolic Activity II 4-5 Yardwork/Stairs/Walk up hill Past Family History Family History Other No significant family history Past Surgical History Surgical History Graves disease s/p thyroidectomy History of section x2 History of colonoscopy multiple History of laparotomy for volvulus Hx of abdominoplasty Hx of gastric bypass s/p 100 pound weight loss Past Anesthesia History No Hx of Anesthesia Complications and No Family Hx of Anesthesia Complications History of PONV No Hx of PONV and No Hx of Motion Sickness Social History Smoking Status: Current every day smoker tobacco type: cigarettes Smoking cigarettes per day: 10 cigs/day x 40 years Do You Dip or Chew Tobacco: No Hx Alcohol Use: Yes (Hx ETOH abuse x 15 years, no ETOH use x 18 months (sober)) Alcohol type: wine and hard liquor Hx Substance Use: Yes (hx) substance use type: former substance user, marijuana, painkillers and prescription drug Substance Use Type Other:: veterinary drugs Last Used Substance: Unknown Last Used Substance Other:: denies use x several years Review of Systems Patient denies chest pain, shortness of breath, dyspnea on exertion, fever, chills, cough, wheezing, palpitations. Physical Exam Vital Signs VITALS BP 132/82 P 61 TEMP 98.2 SP02 98%RA RESP 16 PHYSICAL Full neck and c-spine range of motion. Full TMJ range of motion. TMD 3 finger breaths Mallampati Score 1 Dentition: edentulous Lungs: clear throughout to auscultation Cardiac: regular rate and rhythm, no murmurs noted Spine: normal Carotid arteries: negative bruit Extremities: no edema Testing Laboratory Results 01/26/20 10:39 01/26/20 10:39 PT 10.2 Seconds (9.0-12.0) 01/26/20 10:39 INR 1.0 (0.9-1.1) 01/26/20 10:39 APTT 33.9 Seconds (21.0-31.0) H 01/26/20 10:39 Blood Type O Positive 01/26/20 10:39 Antibody Screen NEGATIVE 01/26/20 10:39 Electrocardiogram Date: 01/26/20 Unusual P axis, possible ectopic atrial bradycardia. Patient with no cardiopulmonary complaints/palpitations at PAT visit from same date as EKG. Chest X-Ray Date: 01/26/20 FINDINGS: PA and lateral chest radiographs are compared to study dated 12/17/2018. The cardiomediastinal silhouette is unremarkable. The lungs and pleural spaces are clear. There is no pneumothorax. The bony thorax appears intact. IMPRESSION: No active disease in the chest.
--- NOTE | 2020-01-26 11:42 | XRay Report ---
TWO VIEW CHEST CLINICAL HISTORY: Preoperative examination. FINDINGS: PA and lateral chest radiographs are compared to study dated 12/17/2018. The cardiomediastin al silhouette is unremarkable. The lungs and pleural spaces are clear. There is no pneumothorax. The bony thorax appears intact. IMPRESSION: No active disease in the chest. ACT 112: Negative or not required by law. Electronically signed by: Andrew Trivedi M.D. 01/26/2020 11:40 AM
--- NOTE | 2020-01-26 11:57 | Electrocardiogram Report ---
Test Reason : Blood Pressure : / mmHG Vent. Rate : 058 BPM Atrial Rate : 058 BPM P-R Int : 160 ms QRS Dur : 090 ms QT Int : 482 ms P-R-T Axes : -89 092 082 degrees QTc Int : 473 ms Unusual P axis, possible ectopic atrial bradycardia Rightward axis Abnormal ECG When compared with ECG of 27-JUL-2017 18:39, Ectopic atrial rhythm has replaced Sinus rhythm Confirmed by David Carmona ([id number]) on 01/26/2020 11:57:03 AM Referred By: Kaushik Ayers Confirmed By:David Carmona
[2020-01-26 12:03] LABS: Basophils # (auto) 0.01 K/uL (0-0.2); Basophils % (auto) 0.2 %; Eosinophils # (auto) 0.01 K/uL (0-0.5); Eosinophils % (auto) 0.2 %; Hematocrit (blood only) 44.2 % (37-47); Hemoglobin 14.2 g/dL (12.0-16.0); Lymphocytes # (auto) 1.17 K/uL (1.2-3.4); Lymphocytes % (auto) 23.3 %; Mean Corpuscular Hgb Conc 32.1 g/dL (32-36); Mean Corpuscular Volume 93.2 fL (80-100); Mean Platelet Volume 9.7 fL (7.4-10.4); Monocytes # (auto) 0.55 K/uL (0.11-0.59); Monocytes % (auto) 10.9 %; Neutrophils # (auto) 3.29 K/uL (1.4-6.5); Neutrophils % (auto) 65.4 %; Platelet Count 295 K/uL (130-400); RDW Coefficient of Variation 13.5 % (11.5-14.5); RDW Standard Deviation 46.2 fL (36.4-46.3); Red Blood Count 4.74 M/uL (4.2-5.4); White Blood Count 5.03 K/uL (4.8-10.8)
[2020-01-26 12:12] LABS: BUN Creatinine Ratio 13.2 (10-20); Calcium 9.1 mg/dl (8.5-10.1); Creatinine Clr Calc Pharmacy 83.8 ml/min; Est GFR (Non-African American) 92.3; Potassium 4.6 mmol/L (3.5-5.1)
[2020-01-26 12:19] LABS: Partial Thromboplastin Ratio 1.2; Partial Thromboplastin Time 33.9 Seconds (21.0-31.0); Prothrombin Time 10.2 Seconds (9.0-12.0)
--- NOTE | 2020-02-21 10:27 | History & Physical Report ---
Date of Service February 21, 2020 Assessment & Plan (1) Osteoarthritis of right knee: We will proceed with a right total knee arthroplasty. Postoperatively she will be started on aspirin for DVT prophylaxis and kept overnight in the hospital for postoperative medical management. She plans to use energy physical therapy upon discharge. Present on Admission?: Yes History of Present Illness Chief Complaint: Primary osteoarthritis of the right knee Primary Care Provider: Ren Mcbride MD Aparna is a pleasant 59-year-old female who is been dealing with chronic increasing right knee pain. X-rays and clinical examination have been diagnostic for advanced osteoarthritis of the right knee. She does have a history of a knee arthroscopy in 2004. Unfortunately her symptoms have worsened. After failing conservative treatment, she has elected to proceed with a right total knee arthroplasty. Allergies Allergy/AdvReac Type Severity Reaction Status Date / Time tramadol AdvReac Severe ineffective Verified 01/26/20 10:16 for pain control Home Medications Medication Instructions Recorded Confirmed Type cyanocobalamin (vitamin B-12) 1,000 mcg IM MONTHLY #0 % 07/27/17 01/26/20 History levothyroxine 112 mcg PO QAM 12/17/18 01/26/20 History naltrexone 50 mg PO QAM 12/17/18 01/26/20 History venlafaxine 300 mg PO QAM 12/17/18 01/26/20 History acetaminophen [Tylenol Extra 1,000 mg PO Q6H PRN 01/19/20 01/26/20 History Strength] oxycodone-acetaminophen 5 mg-325 1 tab PO Q6 PRN #30 tab 01/26/20 01/26/20 Rx mg tablet Past Med/Surg History Medical History Anemia chronic s/p gastric bypass, no known of transfusions Anxiety Arthritis Depression Graves disease s/p thyroidectomy HLD (hyperlipidemia) Meralgia paresthetica Obesity Surgical History Graves disease s/p thyroidectomy History of section x2 History of colonoscopy multiple History of laparotomy for volvulus Hx of abdominoplasty Hx of gastric bypass s/p 100 pound weight loss Family History Other No significant family history Social History Smoking Status: Current every day smoker Cigarettes Per Day: 10 cigs/day x 40 years; Second Hand Exposure: No; Hx Alcohol Use: Yes (Hx ETOH abuse x 15 years, no ETOH use x 18 months (sober)) Alcohol type: wine and hard liquor Hx Substance Use: Yes (hx) Last Used Substance: Unknown Last Used Substance Other:: denies use x several years Substance Use Type Other:: veterinary drugs Preferred Language: [place] Citizen Communication Ability: Effective Size Changer Required: No Beliefs That Will Affect Care: None marital status: Current Living Situation: Spouse Feels Safe at Home: Yes Assistive Devices: Glasses Review of Systems Review of Systems: All systems reviewed & are unremarkable except as noted in HPI & below Physical Exam Constitutional: WD/WN, vitals as above Eyes: PERRL, conjunctivae normal, anicteric sclerae ENMT: external ear and nose normal, oropharynx normal Neck: trachea midline, no thyromegaly Respiratory: normal respiratory effort Cardiovascular: RRR, no murmur, no edema Gastrointestinal (Abdomen): normal bowel sounds, soft, nontender, no hepatosplenomegaly Musculoskeletal: On physical examination of the right knee there is a trace effusion. There is near full range of motion and no evidence of instability. There is significant tenderness palpation along the medial and lateral joint lines and over the distal femoral condyles. Psychiatric: A+Ox3, euthymic affect Results & Data Results & Data ([facility]) Diagnostic Findings Radiographs of the right knee demonstrate advanced osteoarthritis with joint space narrowing osteophyte formation and [id number] articulation. PG Care Time/CCT Total # of Minutes Spent Total Time Spent with Patient: Total time spent is greater than 50% in coordination of care (as documented) at patient's floor/unit and/or counseling patient: Coding Level of Care Code None Diagnoses Osteoarthritis of right knee M17.11
[~2020-02-22 07:34] MED LIST changes: +ACETAMINOPHEN 500 MG TAB PO SCH; +BUPIVACAINE 0.5 % 5 MG/1 ML PF 10ML VIAL ONE; -CYAN3INJ; -EFF50 PO; +EPINEPHrine INJ 1 MG/ML AMP ONE; +FAMOTIDINE 20 MG TAB PO SCH; -FRRS300 PO; +GABAPENTIN 600 MG DOSE PO SCH; +LR 500ML BOLUS, THEN 15ML/HR IV SCH; +LR 60ML/HR IV SCH; +ROPIVACAINE 0.5% 5 MG/ML 30 ML VIAL ONE; +ROPIVACAINE 0.5% HCL/PF 150 MG, BUPIVACAINE 0.5% MPF 30 ML, EPINEPHrine 30MG/30ML (OR U... INSTIL SCH; -SYN125 PO; +TRANEXAMIC ACID 1,000 MG **IV Intra-op IV SCH; +TRANEXAMIC ACID 1,000 MG **IV Pre-op IV SCH; -TRAZ100T29 PO; +ceFAZolin 1000MG 1,000 MG/7.5 ML SYR IV SCH; +dexAMETHasone 4 MG TAB PO SCH
[2020-02-22] MEDS ORDERED: PHENYLEPHRINE 100MCG/ML 5ML SYR IV PRN (07:46)
[2020-02-22] MEDS ORDERED: ATROPINE SULFATE 0.1 MG/ML 10ML SYR IV PRN (07:46)
[2020-02-22] MEDS ORDERED: fentaNYL citrate 100 MCG/2 ML VIAL IV PRN (07:46)
[2020-02-22] MEDS ORDERED: ONDANSETRON INJ 2 MG/ML 2 ML VIAL IV PRN ×2 (07:46→12:06)
[2020-02-22] MEDS ORDERED: ePHEDrine sulfate 50 MG/ML AMP IV PRN (07:46)
[2020-02-22] MEDS ORDERED: HYDROmorphone INJ 1 MG/ML SYRINGE IV PRN (07:46)
[2020-02-22] MEDS ORDERED: LABETALOL HCL IV 5 MG/ML 20ML IV PRN (07:46)
[2020-02-22] MEDS ORDERED: PROPOFOL IV EMULSION 10 MG/ML 20 ML VIAL IV ONE (08:01)
[2020-02-22] MEDS ORDERED: fentaNYL citrate 100 MCG/2 ML VIAL ONE (08:01)
[2020-02-22] MEDS ORDERED: MIDAZOLAM HCL 1 MG/ML 2ML VIAL ONE ×2 (08:01→09:13)
[2020-02-22] MEDS ORDERED: LIDOCAINE HCL 2% 2 ML VIAL/AMP(20MG/ML) INFIL ONE (08:01)
[2020-02-22] MEDS ORDERED: KETAMINE 50 MG/5 ML SYRINGE ONE (09:38)
--- NOTE | 2020-02-22 09:43 | History & Physical Bridge Note ---
Date of Service February 22, 2020 History & Physical Bridge Note I have examined the patient, reviewed the History & Physical and in the interval since the performance of the History & Physical I have noted the following changes of clinical significance: no changes noted
--- NOTE | 2020-02-22 10:49 | Operative Report ---
PG Post Operative Report Pre & Post Diagnosis Operation Date: 02/22/20 09:45 Pre-Op Diagnosis: Right Knee Degenerative Joint Disease Post-Op Diagnosis: Right Knee Degenerative Joint Disease I identified the patient and participated in the time-out.: Yes Procedure Operation Date: 02/22/20 09:45 Actual Procedures p Right Total Knee Arthroplasty(Right) - Kaushik Ayers DO Surgeon Kaushik Ayers DO Chief Security And Safety Officer Kaushik Shay PAC Estimated Blood Loss 10 Findings Consistent with Post-Op Diagnosis Specimens Right femoral and tibial bone Complications none Disposition Disposition: Recovery Room Indications Aparna is a pleasant 59-year-old female who presented my office with chronic increasing right knee pain. X-rays and clinical examination were diagnostic for advanced osteoarthritis of the right knee. After failing conservative treatment, she elected to proceed with a right total knee arthroplasty. Description of Procedure Implants used: I used a Christophre Persona total knee arthroplasty system with a size 5 standard femur, D tibia, 32 patella, and a size 10 medial congruent polyethylene bearing. All components were cemented in place with Palacos G cement. Aparna arrived [facility] for the above procedure. She was seen in the preoperative holding area and the operative extremity was identified and signed. She was given a preoperative antibiotic, TXA, a spinal anesthetic and an adductor nerve block. She was taken back to the operating room and laid on the table in supine position. She was given basic sedation. The operative knee was then prepped and draped in sterile fashion. A timeout was done, and the patient and the operative extremity was properly identified. A midline incision was made directly over the patella. Dissection was taken down to the extensor mechanism. A subvastus arthrotomy was used. The medial retinaculum was released and the fat pad was mostly excised. The knee was flexed and the ACL, PCL, and meniscus were removed. A drill was sent down the center of the femoral canal followed by an intramedullary abhinav. Off that abhinav a distal femoral cutting block was placed. 9 mm was resected off the distal femur at 5 of valgus. A posterior referencing AP sizing guide was then placed on the distal femur. The femur measured to be a size 5 standard. 2 drill holes were placed in 3 of external rotation. A 4-in-1 cutting block was then impacted into place. Anterior, posterior, and chamfer cuts were then made. The proximal tibia was then exposed. An external tibial alignment guide was placed. A tibial cut guide was then anchored in place and the proximal tibia was then resected. The posterior aspect of the knee was then opened up and any additional meniscus fragments and osteophytes were removed. The tibia measured to be a size D. The tibial plate was then placed in the appropriate rotation and the tibia was drilled and punched. Trial components were then placed. I used a size 10 medial congruent polyet hylene insert. The knee was brought through a full range of motion and felt to be stable. The peg holes for the femoral component were then drilled. The patella was then everted and 9 mm was resected off the posterior aspect of the patella. The patella measured to be a size 32. 3 peg holes were then drilled. A trial patella was placed. The knee was once again brought through a full range of motion and felt to be stable. Trial components were then removed. The surrounding soft tissues were injected with 100 cc of an orthopedic pain control cocktail. All components were then cemented into place with Palacos G cement. The final polyethylene insert was then snapped into place. Once cement was dry the tourniquet was deflated. Hemostasis was obtained. A dilute betadyne lavage was then done for 3 minutes. The joint was then irrigated with normal saline solution. The subvastus arthrotomy was then closed with #1 Vicryl suture. The skin was closed with 2-0 Vicryl, 3-0V lock suture, and re. A Silverlon and a soft compressive dressing were placed. She was then transferred to a hospital bed and taken to the postanesthesia care unit in stable condition. She tolerated the procedure well. Kaushik Shay PA-C, was present for the entire procedure. He was critical for patient positioning, prepping, draping, retraction exposure, wound closure and application of sterile dressing. I attest to the content of the Intraoperative Record and any orders documented therein. Any exceptions are noted below.
--- NOTE | 2020-02-22 11:26 | Anesthesiology Progress Note ---
Date of Service February 22, 2020 Anesthesia Post Procedure Vital Signs Vital Signs: Temp Pulse Pulse Resp BP Pulse Ox 02/22/20 11:20 64 14 114/68 98 02/22/20 11:10 65 14 110/65 100 02/22/20 11:00 36.6 C 65 14 106/60 100 02/22/20 08:11 37.1 C 66 18 142/83 H 99 Transfer of Care Handoff Completed per policy Notes Mental Status: alert / awake / arousable Patient Amnestic to Procedure: Yes Nausea / Vomiting: adequately controlled Pain: adequately controlled Airway Patency, RR, SpO2: stable & adequate BP & HR: stable & adequate Hydration State: stable & adequate Neuraxial Anesthesia: was administered and sensory block is resolving Anesthetic Complications: no major complications apparent and Pt Satisfied with anesthetic care
--- NOTE | 2020-02-22 11:53 | XRay Report ---
XR knee RT 1 or 2V routine CLINICAL HISTORY: Surgical Post Op COMPARISON: 01/02/2012 DISCUSSION: There are postsurgical changes of a total right knee arthroplasty and patellar resurfacin g. The femoral tibial components appear well seated. There is gas present within the soft tissues con sistent with recent surgery. There are overlying skin re. IMPRESSION: Postsurgical changes of a total right knee arthroplasty. ACT 112: Negative or not required by law. Electronically signed by: Chente Dior M.D. 02/22/2020 11:52 AM
[2020-02-22] MEDS ORDERED: oxyCODONE HCL IR 5 MG TAB (IMMEDIATE RELEASE) PO PRN (12:06)
[2020-02-22] MEDS ORDERED: HYDROmorphone INJ 0.5 MG/0.5 ML SYR IV PRN (12:06)
[2020-02-22] MEDS ORDERED: METOCLOPRAMIDE HCL INJ 5 MG/ML 2 ML VIAL IV PRN (12:06)
[2020-02-22] MEDS ORDERED: bisacodyL 10 MG SUPP PR PRN (12:06)
[2020-02-22] MEDS ORDERED: MAGNESIUM HYDROXIDE SUSP 30 ML UDC PO PRN (12:06)
[2020-02-22] MEDS ORDERED: NALOXONE HCL 0.4 MG/1 ML VIAL/CARP IV PRN (12:06)
[2020-02-22] MEDS: SODIUM CHLORIDE 0.9% 1000ML 1,000 ML IV SCH ×2 (13:18→22:10)
[2020-02-22] MEDS: KETOROLAC 30 MG/ML VIAL IV SCH ×3 (14:07→23:51)
[2020-02-22] MEDS: ACETAMINOPHEN 500 MG TAB PO SCH ×2 (16:19→22:32)
[2020-02-22] MEDS: ceFAZolin 2000MG 2,000 MG/15 ML SYR IV SCH (18:01)
[2020-02-22] MEDS: ASPIRIN 81 MG ECTAB PO SCH (20:46)
[2020-02-22] MEDS: DOCUSATE SODIUM 100 MG CAP PO SCH (20:46)
[2020-02-22] MEDS ORDERED: SENNA 8.6 MG TAB PO SCH (21:00)
[2020-02-23] MEDS: ceFAZolin 2000MG 2,000 MG/15 ML SYR IV SCH (00:43)
[2020-02-23] MEDS: ACETAMINOPHEN 500 MG TAB PO SCH (05:51)
[2020-02-23] MEDS: KETOROLAC 30 MG/ML VIAL IV SCH (05:51)
[2020-02-23 06:03] LABS: Hematocrit (blood only) 35.9 % (37-47); Hemoglobin 11.7 g/dL (12.0-16.0); Mean Corpuscular Hemoglobin 29.9 pg (25-34); Mean Corpuscular Hgb Conc 32.6 g/dL (32-36); Mean Corpuscular Volume 91.8 fL (80-100); Mean Platelet Volume 9.2 fL (7.4-10.4); Platelet Count 251 K/uL (130-400); RDW Coefficient of Variation 13.8 % (11.5-14.5); RDW Standard Deviation 46.4 fL (36.4-46.3); Red Blood Count 3.91 M/uL (4.2-5.4); White Blood Count 12.07 K/uL (4.8-10.8)
[2020-02-23 06:22] LABS: BUN Creatinine Ratio 18.4 (10-20); Calcium 7.9 mg/dl (8.5-10.1); Creatinine Clr Calc Pharmacy 94.5 ml/min; Est GFR (Non-African American) 98.4; Potassium 4.1 mmol/L (3.5-5.1)
[2020-02-23] MEDS ORDERED: LEVOTHYROXINE SODIUM 112 MCG TABLET PO SCH (06:30)
--- NOTE | 2020-02-23 07:15 | Orthopedic Progress Note ---
Date of Service February 23, 2020 Assessment & Plan (1) Status post right knee replacement: Overall she is doing very well. She denies any much pain in the right knee. She is on aspirin twice a day for DVT prophylaxis. She will be seen by physical therapy today for ambulation and range of motion exercises. She can be discharged home later today. She will follow-up with orthopedics in 2 weeks. Present on Admission?: Yes Admission and Anticipated Discharge Date Admission Date: February 22, 2020 Joseph Pineda was seen and examined at bedside this morning. Overall she doing very well. She is not having much pain in the right knee. She has been up and ambulating with therapy. She has no complaints. Physical Exam Physical Exam: On physical examination of the right knee, the right leg is out full extension. She has ice on her right knee. She has active dorsiflexion plantarflexion of her right ankle. Sensations intact throughout. Results & Data ([facility]) Vital Signs (Past 12 Hours) Vital Signs Temp Pulse Resp BP Pulse Ox 02/23/20 03:34 36.8 C 67 15 100/65 97 02/22/20 23:35 37.1 C 64 18 106/68 96 02/22/20 20:03 36.9 C 67 15 119/72 97 Laboratory Results H & H 01/26/20 02/23/20 Range/Units 10:39 05:42 Hgb 14.2 11.7 L (12.0-16.0) g/dL Hct 44.2 35.9 L (37-47) % Coagulation 01/26/20 Range/Units 10:39 INR 1.0 (0.9-1.1) Diagnostic Findings Postoperative x-rays of the right knee show the prosthesis to be in anatomic alignment without any evidence of fracture, dislocation, or loosening. PG Care Time/CCT Total # of Minutes Spent Total Time Spent with Patient: Total time spent is greater than 50% in coordination of care (as documented) at patient's floor/unit and/or counseling patient: Coding Level of Care Code None Diagnoses Status post right knee replacement Z96.651
--- NOTE | 2020-02-23 07:16 | Discharge Summary ---
Date of Service February 23, 2020 Admission HPI Per Admitting Provider Aparna is a pleasant 59-year-old female who is been dealing with chronic increasing right knee pain. X-rays and clinical examination have been diagnostic for advanced osteoarthritis of the right knee. She does have a history of a knee arthroscopy in 2004. Unfortunately her symptoms have worsened. After failing conservative treatment, she has elected to proceed with a right total knee arthroplasty. Principal Diagnosis Right knee replacement Discharge Data Allergies Allergy/AdvReac Type Severity Reaction Status Date / Time tramadol AdvReac Severe ineffective Verified 02/22/20 07:54 for pain control Consultations 02/22/20 12:06 Consult Case Management - Discharge Planning Routine Procedures Performed Operation Date: 02/22/20 09:45 Actual Procedures p Right Total Knee Arthroplasty(Right) - Kaushik Ayers DO Ordered Studies 02/22/20 05:00 US - OR guided needle placemen Routine Hospital Course (1) Status post right knee replacement: On February 22, 2020 Aparna arrived at [facility] and underwent a right knee replaced without complication. She had a spinal anesthetic. Postoperatively she was started on aspirin for DVT prophylaxis and transferred to the general hepatic floors. Her hospital course was uneventful. On postop day #1 her H&H was stable and her pain was well controlled. She was able to participate well with physical therapy doing ambulation and range of motion exercises. She was then discharged home. She will follow-up with orthopedics in 2 weeks. Total Time Total Time Spent Total Time Spent (In Minutes): 20 Discharge Plan Discharge Items Patient Disposition: Home - Home Health Services Reason For Visit: Right Knee Degenerative Joint Disease Discharge Diagnosis: Right knee replacement Activity: As commented below Non-emergency contact: Surgeon Call non-emergency contact if: your wound has increased redness and your wound has increased drainage Follow-up/Referrals: Ren Mcbride MD [Primary Care Provider] - Diet: Regular Addtl Attending Provider Instructions: Activity and Therapy Recommendations: * If you are using [facility] then therapy will be provided at your home until they feel you have accomplished all of your goals. * If you are using [facility] then Physical Therapy will be provided until they feel you are ready to start Outpatient Physical Therapy. * If you are not using home therapy then Outpatient Physical Therapy should start about 3-5 days from your day of surgery. Therapy will last about 6-10 weeks * It is important not to put a pillow under your knee when you are relaxing or sleeping. It is just as important to make sure you are getting your knee perfectly straight as it is to regain your knee bend. * You were shown a series of exercises in the hospital. Do these exercises three times each day including the exercises you were shown in physical therapy. * Get up and walk several times each day. For the first four weeks, try not to stand or walk for more than one hour at a time. If you do stand or walk for more than one hour, you will not hurt anything, but your leg will likely swell. * As you feel comfortable, you may change from the walker or crutches to a cane and then to independent walking. Medications: * Narcotic You will likely be sent home from the hospital with a prescription for the narcotic pain medication that worked best throughout your stay. * Aspirin Most patients will be required to take Aspirin 81mg twice a day for 6 weeks after surgery. This is obtained [id number] and a prescription is not necessary. * Other medications may be prescribed for specific circumstances. If you have any questions, please call the office at . * Resume previous home medications unless otherwise instructed TEDs/Elastic Stockings: The white elastic stockings help limit swelling and prevent blood clots from forming in your legs.~ The more you wear them, the more they work. Wear them for six weeks. Dressing Care: Leave the Silverlon dressing in place for 7 days. After 7 days you may remove the dressing. If the incision is not draining then you may leave the re open to air. If there is a little bit of drainage or if the er are getting stuck on your clothing then cover the incision with a dry dressing. The re will be removed at your 2 week follow-up appointment. Showering: You may shower with the Silverlon dressing in place. Do not let the shower spray hit the dressing directly. Pat the Silverlon dressing dry. If the dressing becomes wet underneath, then simply remove the dressing. Keep the incision dry until you are 7 days out from the day of surgery. After 7 days you may remove the Silverlon dressing and shower with the re exposed. Let soapy water run over the re and pat them dry. Do not scrub or soak the incision. Things To Watch For: * Drainage from the incision site that occurs more than one week after your surgery. * Increased redness at the incision site. * Fever above 102 degrees Fahrenheit. * Unusual chest pain or shortness of breath. * Call [facility] at with any of the above problems Follow-Up Visit: Follow-up with Dr. Ayers's PA (Kaushik Shay) 2-3 weeks after your day of surger y. He will remove your re and answer any questions. If you have any additional questions or concerns, Dr Ayers is usually in the office at the same time and will be available An appointment was probably scheduled when you signed-up for surgery in the office. If you have any questions call Office Instructions: More detailed instructions as well as Frequently Asked Questions were provided in a folder by our office when you signed-up for surgery. Please review these instructions when you get home. If you have any further questions or concerns, please feel free to call the office at [phone] Pending Studies at Discharge: No Stand-Alone Forms: My [facility] [place], Smoking Cessation Medications and DC Order Prescriptions: New oxycodone 10 mg tablet 10 mg PO Q4H PRN (Reason: pain) Qty: 60 RF: 0 aspirin 81 mg Tablet,Delayed Release (Dr/Ec) 81 mg PO BID 42 Days Qty: 0 RF: 0 Continued cyanocobalamin (vitamin B-12) 1,000 mcg/mL Solution 1,000 mcg IM MONTHLY Qty: 0 RF: 0 acetaminophen [Tylenol Extra Strength] 500 mg Capsule 1,000 mg PO Q6H PRN (Reason: Pain) RF: 0 levothyroxine 112 mcg tablet 112 mcg PO QAM RF: 0 naltrexone 50 mg tablet 50 mg PO QAM RF: 0 venlafaxine 150 mg capsule,extended release 24hr 300 mg PO QAM RF: 0 Discontinued oxycodone-acetaminophen 5-325 mg tablet 1 tab PO Q6 PRN (Reason: pain) Qty: 30 RF: 0 Discharge Orders: Discharge Order (Routine); Ordered 02/23/20 Ordered By: Kaushik Ayers Admission Data Admit Date/Time: 02/22/20 11:03 Attending Provider: Kaushik Ayers Admit Provider: Kaushik Ayers Primary Care Provider: Ren Mcbride Coding Level of Care Code D/C Day Management <30 mins Diagnoses Status post right knee replacement Z96.651
[2020-02-23] MEDS ORDERED: dexAMETHasone 4 MG TAB PO SCH (08:00)
[2020-02-23] MEDS: NALTREXONE HCL 50 MG TAB PO SCH ×2 (08:10→08:14)
[2020-02-23] MEDS: DOCUSATE SODIUM 100 MG CAP PO SCH (08:10)
[2020-02-23] MEDS: ASPIRIN 81 MG ECTAB PO SCH (08:11)
[2020-02-23] MEDS ORDERED: MULTIVITAMIN TAB PO SCH (09:00)
[2020-02-23] MEDS ORDERED: VENLAFAXINE HCL XR 150 MG CAPXR PO SCH (09:00)
== END 2020-02-23 11:35 | disposition home health service (06) ==
LOC: 3N 07:34 → ASU 07:34